=== PATIENT | male | born 1960 | race African-American/Black ===

== ENCOUNTER → 2017-12-24 | Outpatient (CLI) | payer MEDICARE | END | disposition home or self-care (01) | LOC: PMGWOUND 10:39 | DX: L89.893 Pressure ulcer of other site, stage 3 (principal) | CPT/HCPCS: 99214 ==

== ENCOUNTER → 2017-12-31 | Outpatient (CLI) | payer MEDICARE | END | disposition home or self-care (01) | LOC: PMGWOUND 11:15 | DX: L89.893 Pressure ulcer of other site, stage 3 (principal) | CPT/HCPCS: 97597; 97598 ==

== ENCOUNTER → 2018-01-07 | Outpatient (CLI) | payer MEDICARE | END | disposition home or self-care (01) | LOC: PMGWOUND 11:31 | DX: L89.893 Pressure ulcer of other site, stage 3 (principal) | CPT/HCPCS: 17250; 97597 ==

== ENCOUNTER → 2018-01-15 | Outpatient (CLI) | payer MEDICARE | END | disposition home or self-care (01) | LOC: PMGWOUND 10:30 | DX: L89.893 Pressure ulcer of other site, stage 3 (principal) | CPT/HCPCS: 97597; 97598 ==

== ENCOUNTER → 2018-01-22 | Outpatient (CLI) | payer MEDICARE | END | disposition home or self-care (01) | LOC: PMGWOUND 11:49 | DX: L89.893 Pressure ulcer of other site, stage 3 (principal) | CPT/HCPCS: 97597 ==

== ENCOUNTER → 2018-01-29 | Outpatient (CLI) | payer MEDICARE | END | disposition home or self-care (01) | LOC: PMGWOUND 11:57 | DX: L89.893 Pressure ulcer of other site, stage 3 (principal) | CPT/HCPCS: 17250; 97597 ==

== ENCOUNTER → 2018-02-05 | Outpatient (CLI) | payer MEDICARE | END | disposition home or self-care (01) | LOC: PMGWOUND 11:14 | DX: L89.893 Pressure ulcer of other site, stage 3 (principal) | CPT/HCPCS: 97597 ==

== ENCOUNTER → 2018-02-19 | Outpatient (CLI) | payer MEDICARE | END | disposition home or self-care (01) | LOC: PMGWOUND 12:22 | DX: L89.893 Pressure ulcer of other site, stage 3 (principal) | CPT/HCPCS: 97597 ==

== ENCOUNTER → 2018-02-26 | Outpatient (CLI) | payer MEDICARE | END | disposition home or self-care (01) | LOC: PMGWOUND 11:55 | DX: L89.893 Pressure ulcer of other site, stage 3 (principal); G82.50 Quadriplegia, unspecified | CPT/HCPCS: 11043; 97597; 97598 ==

== ENCOUNTER 2018-03-05 14:40 | Inpatient (IN) | payer MEDICARE ==
[2018-03-05 16:12] LABS: BASO % 0 % (0-3); EOS # 0.2 x10^3/uL (0.0-0.7); EOS % 2 % (0-3); HEMATOCRIT 35.3 % (39.0-53.0); HEMOGLOBIN 11.4 g/dL (13.0-17.5); LYMPH # 0.7 x10^3/uL (1.0-4.8); LYMPH % 8 % (24-48); MEAN CORPUSCULAR HEMOGLOBIN 23 pg (25-35); MEAN CORPUSCULAR HGB CONC 32 g/dL (31-37); MEAN CORPUSCULAR VOLUME 72 fL (79-100); MONO # 0.4 x10^3/uL (0.0-1.1); MONO % 4 % (0-9); NEUT # 8.4 x10^3uL (1.8-7.7); NEUT % 86 % (31-73); PLATELET COUNT 332 x10^3/uL (140-400); RED BLOOD COUNT 4.93 x10^6/uL (4.30-5.70); RED CELL DISTRIBUTION WIDTH 20.4 % (11.5-14.5); WHITE BLOOD COUNT 9.7 x10^3/uL (4.0-11.0)
[2018-03-05 16:16] LABS: ADD MAN DIFF? YES
[2018-03-05 16:32] LABS: ANION GAP 12 (6-14); BLOOD UREA NITROGEN 14 mg/dL (8-26); CALCIUM 8.6 mg/dL (8.5-10.1); CARBON DIOXIDE 26 mmol/L (21-32); CHLORIDE 103 mmol/L (98-107); CREATININE 0.6 mg/dL (0.7-1.3); GLUCOSE 173 mg/dL (70-99); POTASSIUM 3.4 mmol/L (3.5-5.1); SODIUM 141 mmol/L (136-145)
[2018-03-05] MEDS ORDERED: traMADol 50 MG TABLET PO (17:15)
[2018-03-05] MEDS ORDERED: ONDANSETRON PF 4 MG/2 ML VIAL. IV (17:15)
[2018-03-05] MEDS ORDERED: DOCUSATE SODIUM 100 MG CAPSULE. PO (17:15)
[2018-03-05] MEDS ORDERED: hydrALAZINE 20 MG/ML VIAL. IVP (17:15)
[2018-03-05] MEDS ORDERED: MORPHINE SULFATE 4 MG/ML DISP.SYRIN. IV (17:15)
[2018-03-05 17:46] LABS: % BANDS 3 % (0-9); % LYMPHS 5 % (24-48); % MONOS 1 % (0-10); % SEGS 91 % (35-66); ANISOCYTOSIS MOD; HYPOCHROMIA SLIGHT; MICROCYTOSIS SLIGHT; PLT ESTIMATE ADEQUATE (ADEQUATE); POIKILOCYTOSIS SLIGHT
[2018-03-05 17:47] LABS: OVALOCYTES OCC
[2018-03-05] MEDS: POTASSIUM CHLORIDE 20 MEQ TABLET.ER. PO (18:27)
[2018-03-05] MEDS: ENOXAPARIN 40 MG/0.4 ML SYRINGE. SQ (21:50)
[2018-03-06 04:26] LABS: ADD MAN DIFF? NO
[2018-03-06 04:38] LABS: BASO % 0 % (0-3); EOS # 0.4 x10^3/uL (0.0-0.7); EOS % 6 % (0-3); HEMOGLOBIN 10.4 g/dL (13.0-17.5); LYMPH # 1.1 x10^3/uL (1.0-4.8); LYMPH % 14 % (24-48); MEAN CORPUSCULAR HEMOGLOBIN 23 pg (25-35); MEAN CORPUSCULAR HGB CONC 33 g/dL (31-37); MEAN CORPUSCULAR VOLUME 70 fL (79-100); MONO # 0.6 x10^3/uL (0.0-1.1); MONO % 8 % (0-9); NEUT # 5.4 x10^3uL (1.8-7.7); NEUT % 72 % (31-73); PLATELET COUNT 317 x10^3/uL (140-400); RED BLOOD COUNT 4.58 x10^6/uL (4.30-5.70); RED CELL DISTRIBUTION WIDTH 20.5 % (11.5-14.5); WHITE BLOOD COUNT 7.5 x10^3/uL (4.0-11.0)
[2018-03-06 04:58] LABS: ANION GAP 6 (6-14); BLOOD UREA NITROGEN 17 mg/dL (8-26); CALCIUM 8.9 mg/dL (8.5-10.1); CARBON DIOXIDE 26 mmol/L (21-32); CHLORIDE 105 mmol/L (98-107); CREATININE 0.5 mg/dL (0.7-1.3); GFR 207.4; GLUCOSE 95 mg/dL (70-99); POTASSIUM 4.5 mmol/L (3.5-5.1); SODIUM 137 mmol/L (136-145)
[2018-03-06] MEDS: ACETAMINOPHEN 325 MG TABLET. PO (12:35)
[2018-03-06] MEDS: BACLOFEN 10 MG TABLET. PO ×2 (12:35→21:59)
[2018-03-06] MEDS: POLYETHYLENE GLYCOL 3350 17 GM PACKET. PO (13:18)
[2018-03-06 21:13] LABS: MRSA BY PCR Negative (Negative)
[2018-03-06] MEDS: ENOXAPARIN 40 MG/0.4 ML SYRINGE. SQ (21:59)
[2018-03-06] MEDS: BISACODYL 10 MG SUPP.RECT. PR (22:02)
[2018-03-07] MEDS: POLYETHYLENE GLYCOL 3350 17 GM PACKET. PO (08:43)
[2018-03-07] MEDS: MULTIVITAMIN with MINERAL TABLET. PO (08:43)
[2018-03-07] MEDS: BACLOFEN 10 MG TABLET. PO ×2 (08:44→22:08)
[2018-03-07] MEDS ORDERED: MULTIVITAMIN with MINERAL TABLET. PO (12:40)
[2018-03-07] MEDS: ENOXAPARIN 40 MG/0.4 ML SYRINGE. SQ (22:08)
[2018-03-08] MEDS: BACLOFEN 10 MG TABLET. PO ×2 (09:31→20:09)
[2018-03-08] MEDS: POLYETHYLENE GLYCOL 3350 17 GM PACKET. PO (09:31)
[2018-03-08] MEDS: MULTIVITAMIN with MINERAL TABLET. PO (09:32)
[2018-03-08 14:27] LABS: % SAT IRON 9 % (15-34); IRON,SERUM 21 ug/dL (65-175)
[2018-03-08] MEDS: BISACODYL 10 MG SUPP.RECT. PR (20:09)
[2018-03-08] MEDS: ENOXAPARIN 40 MG/0.4 ML SYRINGE. SQ (20:09)
[2018-03-09] MEDS: POLYETHYLENE GLYCOL 3350 17 GM PACKET. PO (08:48)
[2018-03-09] MEDS: BACLOFEN 10 MG TABLET. PO (08:49)
[2018-03-09] MEDS: MULTIVITAMIN with MINERAL TABLET. PO (08:49)
[2018-03-09 13:45] LABS: ADD MAN DIFF? NO
[2018-03-09 13:47] LABS: BASO % 0 % (0-3); EOS # 0.4 x10^3/uL (0.0-0.7); EOS % 7 % (0-3); HEMOGLOBIN 10.5 g/dL (13.0-17.5); LYMPH # 1.2 x10^3/uL (1.0-4.8); LYMPH % 19 % (24-48); MEAN CORPUSCULAR HEMOGLOBIN 23 pg (25-35); MEAN CORPUSCULAR HGB CONC 33 g/dL (31-37); MEAN CORPUSCULAR VOLUME 71 fL (79-100); MONO # 0.4 x10^3/uL (0.0-1.1); MONO % 6 % (0-9); NEUT # 4.5 x10^3uL (1.8-7.7); NEUT % 69 % (31-73); PLATELET COUNT 306 x10^3/uL (140-400); RED BLOOD COUNT 4.55 x10^6/uL (4.30-5.70); RED CELL DISTRIBUTION WIDTH 20.4 % (11.5-14.5); WHITE BLOOD COUNT 6.6 x10^3/uL (4.0-11.0)
[2018-03-09 14:05] LABS: ANION GAP 8 (6-14); BLOOD UREA NITROGEN 15 mg/dL (8-26); CALCIUM 8.2 mg/dL (8.5-10.1); CARBON DIOXIDE 29 mmol/L (21-32); CHLORIDE 102 mmol/L (98-107); CREATININE 0.6 mg/dL (0.7-1.3); GLUCOSE 135 mg/dL (70-99); POTASSIUM 4.3 mmol/L (3.5-5.1); SODIUM 139 mmol/L (136-145)
== END 2018-03-09 18:10 | DRG 592 ==
LOC: 4 NORTH 14:40
DX: L89.893 Pressure ulcer of other site, stage 3 (principal); G82.50 Quadriplegia, unspecified; D50.9 Iron deficiency anemia, unspecified; N50.89 Other specified disorders of the male genital organs; Z89.611 Acquired absence of right leg above knee; Z74.01 Bed confinement status; Z82.49 Family history of ischemic heart disease and other diseases of the circulatory system
CPT/HCPCS: 36415; 80048; 83540; 83550; 85007; 85025; 87641; J1650

== ENCOUNTER → 2018-03-05 | Outpatient (CLI) | payer MEDICARE | END | disposition home or self-care (01) | LOC: PMGWOUND 10:40 | DX: L89.893 Pressure ulcer of other site, stage 3 (principal); G82.50 Quadriplegia, unspecified | CPT/HCPCS: 97597 ==

== ENCOUNTER → 2019-01-18 | Outpatient (CLI) | payer MEDICARE ==
[2018-03-09 15:00] VITALS: BP 124/87
[~2019-01-18] MED LIST: BACL20TA PO; DOCU-109 PO; MULT-246 PO; POLY17PO29 PO; Sulfamethoxazole/Trimethoprim PO
== END | disposition home or self-care (01) ==
LOC: PMGWOUND 09:19
PROVIDERS: ATTEND Emergency Medicine Undersea and Hyperbaric Medicine
DX: L89.893 Pressure ulcer of other site, stage 3 (principal); L97.821 Non-pressure chronic ulcer of other part of left lower leg limited to breakdown of skin; Z89.611 Acquired absence of right leg above knee; T83.098D Other mechanical complication of other urinary catheter, subsequent encounter
CPT/HCPCS: 97597; 97598

== ENCOUNTER 2020-08-13 17:49 | Emergency (ER) | payer MEDICARE, OTHER ==
[~2020-08-13] VITALS: Ht 188 cm; Wt 60.0 kg
[~2020-08-13 17:49] MED LIST changes: +MULT-445 PO; +SENN1TAB71 PO
--- NOTE | 2020-08-13 19:29 | RAD ---
Exam: Left elbow 3 views INDICATION: [place] pop from left elbow during therapy TECHNIQUE: Frontal, lateral and oblique views of the left elbow Comparisons: None FINDINGS: There is an obliquely oriented fracture of the distal diaphysis of the left humerus. Deformity at the elbow joint is noted. Mild surrounding soft tissue swelling. Bone mineralization is normal. IMPRESSION: Obliquely oriented fracture of the distal diaphysis of the left humerus, moderately displaced. Electronically signed by: Yo Mata MD (08/13/2020 7:26 PM) GUZMAN
--- NOTE | 2020-08-13 21:16 | PHYS DOC ---
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 Patient denies any chance he is being abused. Review of Systems: Review of Systems: Constitutional: Denies fever or chills. [] Eyes: Denies change in visual acuity. [] HENT: Denies nasal congestion or sore throat. [] Respiratory: Denies cough or shortness of breath. [] Cardiovascular: Denies chest pain or edema. [] GI: Denies abdominal pain, nausea, vomiting, bloody stools or diarrhea. [] : Denies dysuria. [] Musculoskeletal: Reports left elbow injury Integument: Denies rash. [] Neurologic: Denies headache, focal weakness or sensory changes. [] Psychiatric: Denies depression or anxiety. [] Heart Score: Risk Factors: Risk Factors: DM, Current or recent (<one month) smoker, HTN, HLP, family h istory of CAD, obesity. Risk Scores: Score 0 - 3: 2.5% MACE over next 6 weeks - Discharge Home Score 4 - 6: 20.3% MACE over next 6 weeks - Admit for Clinical Observation Score 7 - 10: 72.7% MACE over next 6 weeks - Early Invasive Strategies Allergies: Allergies: Allergies Coded Allergies Type Severity Reaction Last Updated Verified No Known Drug Allergies 05/30/19 No Physical Exam: PE: Constitutional: Well developed, well nourished, no acute distress, non-toxic appearance. [] Jo catheter in place with cloudy urine. Skin: Very dry flaky skin Back: No tenderness, no CVA tenderness. [] Extremities: Quadriplegic patient, right [id number] amputation, left lower extremity is contracted. Right upper extremity is contracted, left upper extremity is flaccid, left fingers are contracted. +2 left radial pulse. Cap refill less than 2 seconds in left fingers. Neurologic: Alert and oriented X 3, normal motor function, normal sensory function, no focal deficits noted. [] Psychologic: flat affect Current Patient Data: Vital Signs: Vital Signs Date Time Temp Pulse Resp B/P (MAP) Pulse Ox O2 Delivery O2 Flow Rate FiO2 08/13/20 17:49 98.1 96 16 142/61 (88) 96 Room Air 98.1 EKG: EKG: [] Radiology/Procedures: Radiology/Procedures: []PROCEDURE: ELBOW LEFT 3V Exam: Left elbow 3 views INDICATION: [place] pop from left elbow during therapy TECHNIQUE: Frontal, lateral and oblique views of the left elbow Comparisons: None FINDINGS: There is an obliquely oriented fracture of the distal diaphysis of the left humerus. Deformity at the elbow joint is noted. Mild surrounding soft tissue swelling. Bone mineralization is normal. IMPRESSION: Obliquely oriented fracture of the distal diaphysis of the left humerus, moderately displaced. Electronically signed by: Yo Turner MD (08/13/2020 7:26 PM) [facility] DICTATED and SIGNED BY: YO TURNER MD DATE: 08/13/201925 Course & Med Decision Making: Course & Med Decision Making Pertinent Labs and Imaging studies reviewed. (See chart for details) This is a 60-year-old male patient presenting to the ED today with left elbow injury that occurred during therapy. Left elbow xray noted for obliquely oriented fracture of the distal diaphysis of the left humerus, moderately displaced. Spoke with Dr. Pride who stated patient can be placed in a well-padded long posterior arm splint and follow-up with his office as an outpatient. Splint was applied by the RN. Neurovascular exam is intact. Patient was discharged home with follow-up information Dragon Disclaimer: Dragleslie Disclaimer: This electronic medical record was generated, in whole or in part, using a voice recognition dictation system. Departure Departure Impression: Primary Impression: Left humeral fracture Qualified Codes: S42.332A - Displaced oblique fracture of shaft of humerus, left arm, initial encounter for closed fracture Disposition: 01 DC HOME SELF CARE/HOMELESS Condition: STABLE Referrals: Santi APARICIO MD (PCP) call his office and set up a follow up appointment ALEKS PRIDE MD Patient Instructions: Humerus Fracture, Treated with Immobilization, [id number] Additional Instructions: You have left humerus fracture. Contact the provided orthopedic doctor tomorrow morning and set up a follow-up appointment SY BROWN APRN Aug 13, 2020 21:16
[2020-08-13 22:00] VITALS: BP 122/75
== END 2020-08-13 23:45 | disposition home or self-care (01) ==
LOC: ER 17:49
DX: S42.332A Displaced oblique fracture of shaft of humerus, left arm, initial encounter for closed fracture (principal); R60.0 Localized edema; Z90.89 Acquired absence of other organs; Z98.890 Other specified postprocedural states; X58.XXXA Exposure to other specified factors, initial encounter; Y93.89 Activity, other specified; Y92.89 Other specified places as the place of occurrence of the external cause; Y99.8 Other external cause status
CPT/HCPCS: 29105; 51702; 73080; 99285

== ENCOUNTER 2020-10-22 19:08 | Emergency (ER) | payer MEDICARE ==
[~2020-10-22] VITALS: Ht 177.8 cm; Wt 59.1 kg
[2020-10-22 19:48] LABS: BASO % 0 % (0-3); EOS # 0.4 x10^3/uL (0.0-0.7); EOS % 6 % (0-3); HEMATOCRIT 42.6 % (39.0-53.0); HEMOGLOBIN 14.2 g/dL (13.0-17.5); LYMPH # 1.9 x10^3/uL (1.0-4.8); LYMPH % 27 % (24-48); MEAN CORPUSCULAR HEMOGLOBIN 27 pg (25-35); MEAN CORPUSCULAR HGB CONC 33 g/dL (31-37); MEAN CORPUSCULAR VOLUME 81 fL (79-100); MONO # 0.4 x10^3/uL (0.0-1.1); MONO % 6 % (0-9); NEUT # 4.4 x10^3/uL (1.8-7.7); NEUT % 62 % (31-73); PLATELET COUNT 248 x10^3/uL (140-400); RED BLOOD COUNT 5.24 x10^6/uL (4.30-5.70); RED CELL DISTRIBUTION WIDTH 17.5 % (11.5-14.5); WHITE BLOOD COUNT 7.1 x10^3/uL (4.0-11.0)
[2020-10-22 19:52] LABS: CLARITY,URINE CLOUDY; COLOR,URINE RED
[2020-10-22 19:55] LABS: CALCIUM 9.2 mg/dL (8.5-10.1); CREATININE 0.5 mg/dL (0.7-1.3); GFR 205.2
[2020-10-22 20:02] LABS: ALBUMIN 3.4 g/dL (3.4-5.0); ALBUMIN/GLOBULIN RATIO 0.6 (1.0-1.7); TOTAL BILIRUBIN 0.3 mg/dL (0.2-1.0); TOTAL PROTEIN 8.7 g/dL (6.4-8.2)
[2020-10-22 20:02] LABS: BACTERIA,URINE MODERATE /HPF (0-FEW); RBC,URINE FIELD OBSCURED /HPF (0-2)
[2020-10-22 20:07] LABS: AMORPHOUS SEDIMENT,UR PRESENT /HPF
[2020-10-22 20:29] LABS: ANISOCYTOSIS SLIGHT
[2020-10-22 20:30] LABS: PLT ESTIMATE ADEQUATE (ADEQUATE)
[2020-10-22 22:05] LABS: BILIRUBIN,URINE NEGATIVE (NEG); CLARITY,URINE CLEAR; COLOR,URINE OTHER; NITRITE,URINE NEGATIVE (NEG); PROTEIN,URINE 100 mg/dL (NEG-TRACE); UROBILINOGEN,URINE 0.2 mg/dL (0.2 mg/dL)
[2020-10-22 22:11] LABS: BACTERIA,URINE FEW /HPF (0-FEW); RBC,URINE TNTC /HPF (0-2)
[2020-10-22] MEDS ORDERED: LEVO750T5 PO (23:45)
--- NOTE | 2020-10-22 23:45 | PHYS DOC ---
Past Medical History Past Medical History: Other Additional Past Medical Histor: quadrapalegic; bowel obstruction Past Surgical History: Colectomy, Other Additional Past Surgical Histo: right leg amputation; bowel obstruction Smoking Status: Never Smoker Alcohol Use: None General Adult EDM: Chief Complaint: BLOOD IN URINE HPI: HPI: Patient is a 60 year old male presents to emergency department today by EMS stating that they think he needs to have his Jo changed. Patient states he has had his Jo changed about 3 months ago. Patient is a quadriplegic male who requires full care at home. Patient is cared for at home by his family members. Patient states he is not in any aches or pains. Patient states that he feels okay. Patient reports that he needs to be on antibiotics every now and then for urinary tract infections. Patient has a chronic indwelling Jo there is he has had for years. Patient denies any recent fever or chills, patient denies any nausea vomiting or diarrhea. Patient does complain of pain to his right lower extremity however patient had his right lower extremity removed at the hip years ago. Patient reports this as a ghost pain. Patient denies any other physical ailments or physical symptoms. Patient states that he thinks if he has his Jo changed and started on antibiotics he should be fine. Review of Systems: Review of Systems: 14 body systems of review of systems have been reviewed. See HPI for pertinent positives and negative responses, otherwise all other systems are negative, nonpertinent or noncontributory. Heart Score: Risk Factors: Risk Factors: DM, Current or recent (<one month) smoker, HTN, HLP, family history of CAD, obesity. Risk Scores: Score 0 - 3: 2.5% MACE over next 6 weeks - Discharge Home Score 4 - 6: 20.3% MACE over next 6 weeks - Admit for Clinical Observation Score 7 - 10: 72.7% MACE over next 6 weeks - Early Invasive Strategies Current Medications: Current Medications Medications (Trade) Dose Ordered Sig/Enrique Start Time Stop Time Status Last Admin Dose Admin Levofloxacin (Levaquin) 750 mg 1X ONCE 10/22/20 23:30 10/22/20 23:31 10/22/20 23:20 750 MG Allergies: Allergies: Allergies Coded Allergies Type Severity Reaction Last Updated Verified No Known Drug Allergies 05/30/19 No Physical Exam: PE: Constitutional: Well developed, well nourished, no acute distress, non-toxic appearance. HENT: Normocephalic, atraumatic, bilateral external ears normal, oropharynx moist, no oral exudates, nose normal. Eyes: PERRLA, EOMI, conjunctiva normal, no discharge. Neck: Normal range of motion, no tenderness, supple, no stridor. Cardiovascular:Heart rate regular rhythm, no murmur to auscultation. Lungs & Thorax: Bilateral breath sounds clear to auscultation all lung hernandez. Abdomen: Bowel sounds normal, soft, rounded, no tenderness, no masses, no pulsatile masses. Skin: Warm, dry, no erythema, no rash. No pressure ulcers appreciated. Back: No tenderness, no CVA tenderness. Extremities: No tenderness, no cyanosis, no clubbing, ROM intact, no edema. Patient bilateral upper extremity contractures. Left lower extremity contractures. Right lower extremity removed at the hip. Neurologic: Alert and oriented X 3, normal motor function, normal sensory function, no focal deficits noted. Psychologic: Affect normal, judgement normal, mood normal. : Patient has indwelling Jo. Jo appears to have been in for an extended period of time, there is blue discoloration to Jo bag and approximately three quarters up Jo bag tube. Unable to appreciate color of urine in Jo bag related to bluish discoloration of plastics. Current Patient Data: Labs: Laboratory Tests Test 10/22/20 19:35 10/22/20 19:38 10/22/20 21:46 Urine Collection Type Unknown U cath Urine Color Red Other Urine Clarity Cloudy Clear Urine pH (<5.0-8.0) 7.0 (<5.0-8.0) Urine Specific [place] (1.000-1.030) <=1.005 (1.000-1.030) Urine Protein mg/dL (NEG-TRACE) 100 mg/dL (NEG-TRACE) Urine Glucose (UA) mg/dL (NEG) Negative mg/dL (NEG) Urine Ketones (Stick) mg/dL (NEG) Trace mg/dL (NEG) Urine Blood (NEG) Large (NEG) Urine Nitrite (NEG) Negative (NEG) Urine Bilirubin (NEG) Negative (NEG) Urine Urobilinogen Dipstick mg/dL (0.2 mg/dL) 0.2 mg/dL (0.2 mg/dL) Urine Leukocyte Esterase (NEG) Moderate (NEG) Urine RBC Field obscured /HPF (0-2) Tntc /HPF (0-2) Urine WBC 11-20 /HPF (0-4) 5-10 /HPF (0-4) Urine Squamous Epithelial Cells Many /LPF Few /LPF Urine Amorphous Sediment Present /HPF Urine Bacteria Moderate /HPF (0-FEW) Few /HPF (0-FEW) White Blood Count 7.1 x10^3/uL (4.0-11.0) Red Blood Count 5.24 x10^6/uL (4.30-5.70) Hemoglobin 14.2 g/dL (13.0-17.5) Hematocrit 42.6 % (39.0-53.0) Mean Corpuscular Volume 81 fL (79-100) Mean Corpuscular Hemoglobin 27 pg (25-35) Mean Corpuscular Hemoglobin Concent 33 g/dL (31-37) Red Cell Distribution Width 17.5 % (11.5-14.5) H Platelet Count 248 x10^3/uL (140-400) Neutrophils (%) (Auto) 62 % (31-73) Lymphocytes (%) (Auto) 27 % (24-48) Monocytes (%) (Auto) 6 % (0-9) Eosinophils (%) (Auto) 6 % (0-3) H Basophils (%) (Auto) 0 % (0-3) Neutrophils # (Auto) 4.4 x10^3/uL (1.8-7.7) Lymphocytes # (Auto) 1.9 x10^3/uL (1.0-4.8) Monocytes # (Auto) 0.4 x10^3/uL (0.0-1.1) Eosinophils # (Auto) 0.4 x10^3/uL (0.0-0.7) Basophils # (Auto) 0.0 x10^3/uL (0.0-0.2) Platelet Estimate Adequate (ADEQUATE) Anisocytosis Slight Target Cells Acanthocytes (Spur Cells) Sodium Level 138 mmol/L (136-145) Potassium Level 4.0 mmol/L (3.5-5.1) Chloride Level 103 mmol/L (98-107) Carbon Dioxide Level 20 mmol/L (21-32) L Anion Gap 15 (6-14) H Blood Urea Nitrogen 10 mg/dL (8-26) Creatinine 0.5 mg/dL (0.7-1.3) L Estimated GFR (Cockcroft-Gault) 205.2 BUN/Creatinine Ratio 20 (6-20) Glucose Level 89 mg/dL (70-99) Calcium Level 9.2 mg/dL (8.5-10.1) Total Bilirubin 0.3 mg/dL (0.2-1.0) Aspartate Amino Transferase (AST) 21 U/L (15-37) Alanine Aminotransferase (ALT) 12 U/L (16-63) L Alkaline Phosphatase 134 U/L (46-116) H Total Protein 8.7 g/dL (6.4-8.2) H Albumin 3.4 g/dL (3.4-5.0) Albumin/Globulin Ratio 0.6 (1.0-1.7) L Urine Mucus Slight /LPF Laboratory Tests 10/22/20 19:38 Laboratory Tests 10/22/20 19:38 Vital Signs: Vital Signs Date Time Temp Pulse Resp B/P (MAP) Pulse Ox O2 Delivery O2 Flow Rate FiO2 10/22/20 19:10 97.8 81 16 100/77 (85) 97 Room Air 97.8 EKG: EKG: [] Radiology/Procedures: Radiology/Procedures: [] Course & Med Decision Making: Course & Med Decision Making Pertinent Labs and Imaging studies reviewed. (See chart for details) 60-year-old quadriplegic male [facility] emergency department via EMS, patient states that he needs his Jo changed and he thinks he might have a urinary tract infection. Jo appears to have been in place for extended period time. Jo was changed by ED nursing staff, UA was sent to lab for urine assay. Urine results consistent with cystitis with hematuria. Discussed with patient will start on p.o. antibiotics. Patient is amenable to this plan. Patient given first dose of 750 mg Levaquin p.o. Patient will be discharged home with prescription of 750 mg Levaquin p.o. daily for 10 days. Patient gave verbal understanding of home care instructions, return to ER concerns, patient had no further questions or concerns. Family caregivers were consulted at home and reviewed discharge home instructions, return to ER concerns. Patient discharged home without incident. Renanon Disclaimer: Dragon Disclaimer: This electronic medical record was generated, in whole or in part, using a voice recognition dictation system. Departure Departure Impression: Primary Impression: Cystitis Additional Impression: Complication of Jo catheter Qualified Codes: T83.9XXA - Unspecified complication of genitourinary prosthetic device, implant and graft, initial encounter Disposition: 01 DC HOME SELF CARE/HOMELESS Condition: STABLE Referrals: Santi APARICIO MD (PCP) Patient Instructions: Interstitial Cystitis Additional Instructions: Please take medications as prescribed, if blood in urine is not improving over the next 10 days, please call your primary care physician for consideration of extension of antibiotics and/or reexamination in the office. Please return the emergency department for worsening symptoms or other concerns. EMERGENCY DEPARTMENT GENERAL DISCHARGE INSTRUCTIONS Thank you for coming to [facility] Emergency Department (ED) today and trusting us with you care. We trust that you had a positive experience in our Emergency Department. If you wish to speak to the department management, you may call the Director at [phone]. YOUR FOLLOW UP INSTRUCTIONS ARE FOLLOWS: 1. Do you have a private Doctor? If you do not have a private doctor, please ask for a resource list of physicians or clinics that may be able to assist you with follow up care. 2. The Emergency Physicain has interpreted your x-rays. The X-Ray specialist will also review them. If there is a change in the findings, you will be notified in 48 hours when at all possible. 3. A lab test or culture has been done, your results will be reviewed and you will be notified if you need a change in treatment. ADDITIONAL INSTRUCTIONS AND INFORMATION: 1. Your care today has been supervised by a physician who is specially trained in emergency care. Many problems require more than one evaluation for a complete diagnosis and treatment. We recommend that you schedule your follow up appointment as recommended to ensure complete treatment of you illness or injury. If you are unable to obtain follow up care and continue to have a problem, or if your condition worsens, we recommend that you return to the ED. 2. We are not able to safely determine your condition over the phone nor are we able to give sound medical advice over the phone. For these safety reasons, if you call for medical advice we will ask you to come to the ED for further evaluation. 3. If you have any questions regarding these discharge instructions please call the ED at [phone]. SAFETY INFORMATION: In the interest of safety, wellness, and injury prevention; we encourage you to wear your sealbelt, if you smoke; quite smoking, and we encourage family to use a protective helmet for bicycling and other sporting events that present an increased risk for head injury. IF YOUR SYMPTOMS WORSEN OR NEW SYMPTOMS DEVELOP, OR YOU HAVE CONCERNS ABOUT YOUR CONDITION; OR IF YOUR CONDITION WORSENS WHILE YOU ARE WAITING FOR YOUR FOLLOW UP APPOINTMENT; EITHER CONTACT YOUR PRIMARY CARE DOCTOR, THE PHYSICIAN WHOSE NAME AND NUMBER YOU WERE GIVEN, OR RETURN TO THE ED IMMEDIATELY. Scripts Levofloxacin (LEVOFLOXACIN) 750 Mg Tablet 750 MG PO DAILY for UTI WITH HEMATURIA, #14 TAB 0 Refills Prov: MONSERRAT ETIENNE APRN 10/22/20 MONSERRAT ETIENNE APRN Oct 22, 2020 23:45
[2020-10-22 23:52] VITALS: BP 126/84
== END 2020-10-23 00:50 | disposition home or self-care (01) ==
LOC: ER 19:08
DX: T83.091A Other mechanical complication of indwelling urethral catheter, initial encounter (principal); N30.91 Cystitis, unspecified with hematuria; Z90.89 Acquired absence of other organs; Z98.890 Other specified postprocedural states
CPT/HCPCS: 36415; 51702; 80053; 81001; 85025; 87086; 99285

== ENCOUNTER 2021-04-05 11:40 | Inpatient (IN) | payer MEDICARE ==
[~2021-04-05] VITALS: Ht 177.8 cm; Wt 58.1 kg
[~2021-04-05 11:40] MED LIST changes: +LEVO750T5 PO
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
[2021-04-05 12:31] LABS: BILIRUBIN,URINE NEGATIVE (NEG); CLARITY,URINE CLOUDY; COLOR,URINE YELLOW; NITRITE,URINE NEGATIVE (NEG); PROTEIN,URINE NEGATIVE (NEG-TRACE); UROBILINOGEN,URINE 0.2 mg/dL (0.2 mg/dL)
[2021-04-05 12:40] LABS: BASO % 0 % (0-3); EOS # 0.2 x10^3/uL (0.0-0.7); EOS % 4 % (0-3); HEMATOCRIT 36.3 % (39.0-53.0); HEMOGLOBIN 12.2 g/dL (13.0-17.5); LYMPH # 1.4 x10^3/uL (1.0-4.8); LYMPH % 27 % (24-48); MEAN CORPUSCULAR HEMOGLOBIN 26 pg (25-35); MEAN CORPUSCULAR HGB CONC 34 g/dL (31-37); MEAN CORPUSCULAR VOLUME 79 fL (79-100); MONO # 0.4 x10^3/uL (0.0-1.1); MONO % 8 % (0-9); NEUT # 3.1 x10^3/uL (1.8-7.7); NEUT % 61 % (31-73); PLATELET COUNT 235 x10^3/uL (140-400); RED CELL DISTRIBUTION WIDTH 18.7 % (11.5-14.5); WHITE BLOOD COUNT 5.2 x10^3/uL (4.0-11.0)
[2021-04-05 12:43] LABS: AMORPHOUS SEDIMENT,UR PRESENT /HPF; BACTERIA,URINE MODERATE /HPF (0-FEW); WBC,URINE 20-40 /HPF (0-4)
[2021-04-05 12:59] LABS: CALCIUM 8.6 mg/dL (8.5-10.1); CREATININE 0.4 mg/dL (0.7-1.3); GFR 265.5; POTASSIUM 4.1 mmol/L (3.5-5.1)
[2021-04-05 13:04] LABS: ALBUMIN 3.1 g/dL (3.4-5.0); ALBUMIN/GLOBULIN RATIO 0.6 (1.0-1.7); TOTAL BILIRUBIN 0.4 mg/dL (0.2-1.0); TOTAL PROTEIN 7.9 g/dL (6.4-8.2)
--- NOTE | 2021-04-05 14:18 | RAD ---
EXAM: CT ABDOMEN/PELVIS WITHOUT CONTRAST. HISTORY: Nonhealing ulcer, concern for osteomyelitis. TECHNIQUE: Computed tomography of the abdomen and pelvis was performed without intravenous contrast. One or more of the following individualized dose reduction techniques were utilized for this examinat ion: 1. Automated exposure control. 2. Adjustment of the mA and/or kV according to patient size. 3. Use of iterative reconstruction technique. COMPARISON: None. FINDINGS: Lung windows through the visualized portions of the bases reveal mild atelectasis. A decubitus ulcer overlies the posterior sacrum to the left of midline. It appears shallow by CT. How ever, there is a large chronic erosion of the sacrum. Most of the S3 segment and the remainder of the inferior sacrum are absent. A small remnant of the tip of the coccyx remains. This is consistent wit h osteomyelitis but this is likely a chronic finding. Portions of the right hemipelvis and right hip are not included within the [id number] given patien t positioning. There is advanced erosion of the left femoral head and expansion of the acetabulum wit h protrusio. There is a large left hip effusion containing many loose bodies. The right hip appears t o been disarticulated. There are calcifications at the remnant of the hamstring origin. More proximal ly, there are laminectomy changes or dysraphism from L1 through the superior margin of the field-of-v iew. There is severe hydronephrosis of the right kidney. The cortex is totally atrophic. The right proxima l ureter is moderately dilated. The left kidney demonstrates no hydronephrosis. A cyst medially measu res 2.7 x 2.4 cm. The liver, pancreas, adrenal glands, spleen and gallbladder are unremarkable. There are no pathologic ally enlarged lymph nodes. The rectum is distended to 8.7 cm consistent with fecal impaction. The amount of stool more proximall y in the colon is not clearly abnormally increased, but there is diffuse moderate colonic distention. An anastomotic suture line is noted along the right colon. There is no small bowel obstruction. IMPRESSION: 1. Most of the inferior sacrum and coccyx are absent secondary to a large erosion. This is consistent with osteomyelitis, but likely a chronic finding. 2. 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 This may reflect a n europathic joint or changes of prior/chronic septic arthritis. 3. Fecal impaction. 4. Severe right hydronephrosis and advanced right renal atrophy. Electronically signed by: Shmuel Billingsley MD (04/05/2021 2:16 PM) [id number]
[2021-04-05] MEDS ORDERED: fentaNYL PF VIAL 100 MCG/2 ML VIAL IV PRN (15:15)
[2021-04-05] MEDS ORDERED: ACETAMINOPHEN 325 MG TABLET. PO PRN (15:15)
[2021-04-05] MEDS ORDERED: ONDANSETRON PF 4 MG/2 ML VIAL. IV PRN (15:15)
--- NOTE | 2021-04-05 17:01 | NUR ---
Wound Care Wound Type/Assessment: Pt screened for wound care needs in the ED room #12. Pt is paralysed below the neck, and is known to the wound clinic for chronic pressure related wounds. Condom catheter in place, urine light yellow, cloudy, with sediment. Pt incontinent of watery, dark stool; brief and absorbent pad changed. Stage II pressure wound to base of penis, inferior to condom catheter with bright red wound bed and smooth epithelialized margins. Unstageable coccyx ulcer wound bed is deep red, moist with hypergranulation and macerated edges; 1.8cm of undermining from 7-12:00. DTI to left lateral knee is soft and purple. Stage III to L knee is pink and slough covered with significant scar tissue to margins. L lateral ankle is a ST III PU with pink granulation and soft yellow slough in wound bed. No other open wounds noted on head to toe assessment, although there is scarring evidence of multiple resolved pressure ulcers to LLE, foot, coccyx, and back. Treatment Recommendations/Plan: Remove dressings from all wounds, cleanse and pat dry. Apply skin prep to gamaliel wounds. Coccyx: Pack with strip of aquacel AG and cover with foam. Change every other day L lateral knee, anterior knee, L lateral ankle: Cover with contact layer and foam dressing. Change every other day Base of penis: Apply skin prep BID and leave DIRECTOR COST Education provided: Pt informed of dressings and his wound care information to be taken to the floor. Pt is completely dependent on others for mobility Offloading surface/device: ordered heel medix boot for L foot and P500 bed. Pillows and purple wedge for positioning and comfort. Pt has WC cushion from home if needed Recommended Referrals/Tests: NA Discharge Recommendations for dressings: As above
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
[2021-04-05] MEDS ORDERED: IV NORMAL SALINE 1000ML BAG 1,000 ML IV ONE (18:30)
[2021-04-05 19:00] VITALS: BP 111/66
[2021-04-05] MEDS: POLYETHYLENE GLYCOL 3350 17 GM PACKET. PO PRN (20:16)
[2021-04-05] MEDS: BACLOFEN 10 MG TABLET. PO SCH (20:16)
[2021-04-05 23:00] VITALS: BP 110/72
[2021-04-06] VITALS (7 sets, daily range): BP systolic 62–114; BP diastolic 36–93
[2021-04-06 04:43] LABS: BASO % 0 % (0-3); EOS # 0.3 x10^3/uL (0.0-0.7); EOS % 4 % (0-3); HEMATOCRIT 36.5 % (39.0-53.0); HEMOGLOBIN 11.7 g/dL (13.0-17.5); LYMPH # 1.3 x10^3/uL (1.0-4.8); LYMPH % 20 % (24-48); MEAN CORPUSCULAR HEMOGLOBIN 26 pg (25-35); MEAN CORPUSCULAR HGB CONC 32 g/dL (31-37); MEAN CORPUSCULAR VOLUME 80 fL (79-100); MONO # 0.7 x10^3/uL (0.0-1.1); MONO % 11 % (0-9); NEUT # 4.1 x10^3/uL (1.8-7.7); NEUT % 65 % (31-73); PLATELET COUNT 217 x10^3/uL (140-400); RED BLOOD COUNT 4.56 x10^6/uL (4.30-5.70); WHITE BLOOD COUNT 6.3 x10^3/uL (4.0-11.0)
[2021-04-06 05:21] LABS: ANION GAP 11 (6-14); BLOOD UREA NITROGEN 10 mg/dL (8-26); CALCIUM 8.5 mg/dL (8.5-10.1); CARBON DIOXIDE 24 mmol/L (21-32); CHLORIDE 104 mmol/L (98-107); CREATININE 0.3 mg/dL (0.7-1.3); GFR > 300.0; GLUCOSE 86 mg/dL (70-99); POTASSIUM 4.2 mmol/L (3.5-5.1); SODIUM 139 mmol/L (136-145)
[2021-04-06] MEDS ORDERED: IV NORMAL SALINE 1000ML BAG 1,000 ML IV ONE (07:45)
[2021-04-06] MEDS: POLYETHYLENE GLYCOL 3350 17 GM PACKET. PO PRN (08:45)
[2021-04-06] MEDS: BACLOFEN 10 MG TABLET. PO SCH ×4 (08:45→20:30)
[2021-04-06] MEDS ORDERED: VANCOMYCIN PER PHARMACY MC PRN (08:45)
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
[2021-04-06] MEDS ORDERED: VANCOMYCIN 1.25 GM in IV NORMAL SALINE 250ML 250 ML IV ONE (09:00)
--- NOTE | 2021-04-06 11:04 | PDOC ---
Infectious Disease Note Vital Sign Vital Signs Vital Signs Date Time Temp Pulse Resp B/P (MAP) Pulse Ox O2 Delivery O2 Flow Rate FiO2 04/06/21 07:53 85/65 (72) 04/06/21 03:00 98.8 82 18 97 98.8 04/05/21 19:00 Room Air Labs Lab Laboratory Tests Test 04/05/21 12:10 04/05/21 12:30 04/06/21 04:15 Urine Collection Type U cath Urine Color Yellow Urine Clarity Cloudy Urine pH 7.0 (<5.0-8.0) Urine Specific [place] <=1.005 (1.000-1.030) Urine Protein Negative mg/dL (NEG-TRACE) Urine Glucose (UA) Negative mg/dL (NEG) Urine Ketones (Stick) Negative mg/dL (NEG) Urine Blood Trace (NEG) Urine Nitrite Negative (NEG) Urine Bilirubin Negative (NEG) Urine Urobilinogen Dipstick 0.2 mg/dL (0.2 mg/dL) Urine Leukocyte Esterase Large (NEG) Urine RBC 1-2 /HPF (0-2) Urine WBC 20-40 /HPF (0-4) Urine Transitional Epithelial Cells Few /LPF Urine Amorphous Sediment Present /HPF Urine Bacteria Moderate /HPF (0-FEW) White Blood Count 5.2 x10^3/uL (4.0-11.0) 6.3 x10^3/uL (4.0-11.0) Red Blood Count 4.60 x10^6/uL (4.30-5.70) 4.56 x10^6/uL (4.30-5.70) Hemoglobin 12.2 g/dL (13.0-17.5) 11.7 g/dL (13.0-17.5) Hematocrit 36.3 % (39.0-53.0) 36.5 % (39.0-53.0) Mean Corpuscular Volume 79 fL (79-100) 80 fL (79-100) Mean Corpuscular Hemoglobin 26 pg (25-35) 26 pg (25-35) Mean Corpuscular Hemoglobin Concent 34 g/dL (31-37) 32 g/dL (31-37) Red Cell Distribution Width 18.7 % (11.5-14.5) 19.0 % (11.5-14.5) Platelet Count 235 x10^3/uL (140-400) 217 x10^3/uL (140-400) Neutrophils (%) (Auto) 61 % (31-73) 65 % (31-73) Lymphocytes (%) (Auto) 27 % (24-48) 20 % (24-48) Monocytes (%) (Auto) 8 % (0-9) 11 % (0-9) Eosinophils (%) (Auto) 4 % (0-3) 4 % (0-3) Basophils (%) (Auto) 0 % (0-3) 0 % (0-3) Neutrophils # (Auto) 3.1 x10^3/uL (1.8-7.7) 4.1 x10^3/uL (1.8-7.7) Lymphocytes # (Auto) 1.4 x10^3/uL (1.0-4.8) 1.3 x10^3/uL (1.0-4.8) Monocytes # (Auto) 0.4 x10^3/uL (0.0-1.1) 0.7 x10^3/uL (0.0-1.1) Eosinophils # (Auto) 0.2 x10^3/uL (0.0-0.7) 0.3 x10^3/uL (0.0-0.7) Basophils # (Auto) 0.0 x10^3/uL (0.0-0.2) 0.0 x10^3/uL (0.0-0.2) Erythrocyte Sedimentation Rate 45 (0-15) Sodium Level 137 mmol/L (136-145) 139 mmol/L (136-145) Potassium Level 4.1 mmol/L (3.5-5.1) 4.2 mmol/L (3.5-5.1) Chloride Level 102 mmol/L (98-107) 104 mmol/L (98-107) Carbon Dioxide Level 26 mmol/L (21-32) 24 mmol/L (21-32) Anion Gap 9 (6-14) 11 (6-14) Blood Urea Nitrogen 8 mg/dL (8-26) 10 mg/dL (8-26) Creatinine 0.4 mg/dL (0.7-1.3) 0.3 mg/dL (0.7-1.3) Estimated GFR (Cockcroft-Gault) 265.5 > 300.0 BUN/Creatinine Ratio 20 (6-20) Glucose Level 90 mg/dL (70-99) 86 mg/dL (70-99) Lactic Acid Level 0.8 mmol/L (0.4-2.0) Calcium Level 8.6 mg/dL (8.5-10.1) 8.5 mg/dL (8.5-10.1) Total Bilirubin 0.4 mg/dL (0.2-1.0) Aspartate Amino Transf (AST/SGOT) 12 U/L (15-37) Alanine Aminotransferase (ALT/SGPT) 13 U/L (16-63) Alkaline Phosphatase 133 U/L (46-116) C-Reactive Protein, Quantitative 15.8 mg/L (0-3.3) Total Protein 7.9 g/dL (6.4-8.2) Albumin 3.1 g/dL (3.4-5.0) Albumin/Globulin Ratio 0.6 (1.0-1.7) CT 1. Most of the inferior sacrum and coccyx are absent secondary to a large erosion. This is consistent with osteomyelitis, but likely a chronic finding. 2. 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 This may reflect a neuropathic joint or changes of prior/chronic septic arthritis. 3. Fecal impaction. 4. Severe right hydronephrosis and advanced right renal atrophy. Micro Microbiology 04/05/21 Blood Culture - Final, Complete Objective Assessment Chronic sacracoccygeal pressure wound with osteomyelitis on CT. GPC bacteremia (1 of 4 bottles), 04/05. Pyuria Fecal impaction Quadriplegia with neurogenic bowel/bladder. Severe right hydronephrosis and advanced right renal atrophy. 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 Has sacral wound but does not track to bone that I can probe. Destructive changes on CT maybe chronic but needs urology eval and likely surgery and flap to heal this Would transfer to or other tertiary center for eval Cont abx D/w nursing Attending Co-Sign Attending Co-Sign The patient was seen and interviewed as well as examined at the bedside. The chart was reviewed. The case was discussed. Agree with the plan of care. RAJENDRA KILLIAN APRN Apr 06, 2021 11:04 ENRICO DUMONT MD Apr 06, 2021 15:14
[2021-04-06] MEDS ORDERED: SODIUM PHOSPHATES 19/7GM 133 ML ENEMA. PR PRN (11:15)
[2021-04-06] MEDS: BISACODYL 10 MG SUPP.RECT. PR PRN (11:30)
[2021-04-06] MEDS: PIPERACILLIN/TAZOBACTAM 3.375 GM in IV NORMAL SALINE 50ML 50 ML IV SCH ×2 (11:30→18:24)
[2021-04-06] MEDS: IV NORMAL SALINE 1000ML BAG 1,000 ML IV SCH (11:36)
[2021-04-06] MEDS ORDERED: DAPTOmycin (GENERIC) IVPB 320 MG in IV NORMAL SALINE 50ML 50 ML IV ONE (12:00)
--- NOTE | 2021-04-06 18:10 | CONS ---
DATE OF CONSULTATION: 04/06/2021 REFERRING PHYSICIAN: Rivera Toro MD REASON FOR CONSULTATION: Questionable sacral osteomyelitis. HISTORY OF PRESENT ILLNESS: This patient is a 60-year-old male who is quadriplegic and lives at home in the care of his sister. He presented to the Emergency Department for concern of a sacrococcygeal wound after his air mattress deflated. He believes the wound has been present for several months. At one point, he was followed by home health. He denies pain, drainage, odor, fever or chills. CT abdomen and pelvis without contrast revealed most of the inferior sacrum and coccyx are absent secondary to a large erosion. This is consistent with osteomyelitis, but likely a chronic finding. Sed rate 45. Normal WBC count. Blood cultures are positive for gram-positive cocci in 1/4 bottles. A dose of vancomycin has been ordered per primary. 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 Abdominal surgery for bowel obstruction. Left cataract extraction. SOCIAL HISTORY: The patient lives at home in the care of his sister. He has a history of smoking. FAMILY HISTORY: COPD, dementia, hypertension. ALLERGIES: No known drug allergies. MEDICATIONS: Vancomycin, baclofen, fentanyl, ondansetron, MiraLax, Senokot, Fleet Enema, Dulcolax suppository, Tylenol. REVIEW OF SYSTEMS: The patient says his last bowel movement was about a week ago. He denies nausea, vomiting. He is not very hungry. Denies cough, shortness of air or chest discomfort. He has some gross movement of right upper extremity. He needs assistance with all his care. PHYSICAL EXAMINATION: VITAL SIGNS: Temperature is 98.8, blood pressure is 85/65, heart rate is 82, respiratory rate is 18, pulse oximetry is 97% on room air. GENERAL: The patient is in bed, alert, watching TV. HEENT: Normal conjunctivae. Oral oropharynx pink and moist. No lesions seen. NECK: Supple. LUNGS: Clear to auscultation. No accessory muscle use. HEART: Normal S1, S2 regular. ABDOMEN: Distended, soft, nontender with bowel sounds present. GENITOURINARY: Indwelling Jo catheter in place since 04/05. EXTREMITIES: Disarticulation right hip. 3+ edema in left lower extremity. He has a left heel wound with a dressing in place, not to be taken down until the . No cyanosis. SKIN: Warm to touch. No signs of rash. He has an approximate 3 cm sacrococcygeal wound. No bone probed, contaminated with stool. NEUROLOGIC: Alert, answering questions appropriately, somewhat of a poor historian, quadriplegia with some gross movement of right upper extremity, left leg contracted. Right EJ looks okay. LABORATORY DATA: WBC 6.3; hemoglobin 11.7; platelets 217,000. Sed rate 45. Electrolytes unremarkable. Creatinine 0.3, BUN 10, glucose 86. Lactic acid 0.8. Total bilirubin 0.4, AST 12, ALT 13. CRP 15.8. Albumin 3.1. Urinalysis positive for wbcs, leukocyte esterase and bacteria. Blood cultures show gram-positive cocci in clusters seen in 1/[address] abdomen and pelvis shows most of the inferior sacrum and coccyx are absent secondary to a large erosion. This is consistent with osteomyelitis, but likely a chronic finding; advanced destruction of the left femoral head with left acetabular protrusion. This may reflect neuropathic joint or changes of prior/chronic septic arthritis; fecal impaction; severe right hydronephrosis and advanced right renal atrophy. IMPRESSION: 1. Chronic sacrococcygeal pressure wound with destructive changes on CT imaging, may be chronic. 2. Gram-positive cocci bacteremia, 1/4 bottles on 04/05. 3. Pyuria. 4. Fecal impaction. 5. Quadriplegia with neurogenic bowel and bladder. 6. Severe right hydronephrosis and advanced right renal atrophy. 7. 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 PLAN: 1. Recommend switching vancomycin to daptomycin and adding Zosyn. 2. Follow up cultures. 3. Monitor laboratory values and temperature. 4. Local wound care and offloading. 5. The patient was seen by General Surgery. He will likely need a flap. 6. With severe hydronephrosis, would transfer to or other tertiary center for evaluation. 7. Bowel regimen per primary. Thank you, Dr. Toro for asking us to participate in this patient's care. Should you have further questions or concerns, please call. The patient was seen and examined and plan of care implemented by Dr. Geremias Blum. JAYLIN/CECY/SOPepper DR: JAYLIN/azam TID: [id number] MTDD
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
[2021-04-06] MEDS: POLYETHYLENE GLYCOL 3350 17 GM PACKET. PO SCH (20:30)
[2021-04-07] VITALS (7 sets, daily range): BP systolic 74–107; BP diastolic 35–73
[2021-04-07] MEDS: PIPERACILLIN/TAZOBACTAM 3.375 GM in IV NORMAL SALINE 50ML 50 ML IV SCH ×5 (00:01→23:55)
[2021-04-07] MEDS: IV NORMAL SALINE 1000ML BAG 1,000 ML IV SCH ×2 (00:02→16:25)
[2021-04-07] MEDS ORDERED: IV NORMAL SALINE 500ML BAG 500 ML IV ONE (00:15)
--- NOTE | 2021-04-07 06:33 | PDOC ---
Infectious Disease Note Subjective Subjective Feels better. No F/C/S/N/V/D/SOA + BMs ROS ROS o/w neg Vital Sign Vital Signs Vital Signs Date Time Temp Pulse Resp B/P (MAP) Pulse Ox O2 Delivery O2 Flow Rate FiO2 04/07/21 03:00 97.6 75 20 96/73 (81) 96 Room Air 97.6 Physical Exam PHYSICAL EXAM GENERAL: The patient is in bed, alert, watching TV. HEENT: Normal conjunctivae. Oral oropharynx pink and moist. No lesions seen. NECK: Supple. LUNGS: Clear to auscultation. No accessory muscle use. HEART: Normal S1, S2 regular. ABDOMEN: Distended, soft, nontender with bowel sounds present. GENITOURINARY: Indwelling Jo catheter in place since 04/05. EXTREMITIES: Disarticulation right hip. 3+ edema in left lower extremity. He has a left heel wound with a dressing in place, not to be taken down until the . No cyanosis. SKIN: Warm to touch. No signs of rash. He has an approximate 3 cm sacrococcygeal wound. No bone probed, contaminated with stool.- examined 04/06 NEUROLOGIC: Alert, answering questions appropriately, somewhat of a poor historian, quadriplegia with some gross movement of right upper extremity, left leg contracted. Right EJ looks okay. Labs Micro Microbiology 04/05/21 Blood Culture - Preliminary, Resulted NO GROWTH AFTER 1 DAY 04/05/21 Urine Culture - Final, Complete Objective Assessment 1. Chronic sacrococcygeal pressure wound with destructive changes on CT imaging, may be chronic. 2. Gram-positive cocci bacteremia, 1/4 bottles on 04/05. 3. Pyuria - 3 or more organisms seen - contamination. 4. Fecal impaction BM 04/06. 5. Quadriplegia with neurogenic bowel and bladder. 6. Severe right hydronephrosis and advanced right renal atrophy. 7. 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 Plan Plan of Care changed vanc to dapto and add Zosyn 04/06 f/u cultures Monitor labs/temp Local wound care and off loading No surgical intervention planned Bowel regimen per primary CT with severe hydro. Has sacral wound but does not track to bone that I can probe. Destructive changes on CT maybe chronic but needs urology eval and likely surgery and flap to heal this Would transfer to or other tertiary center for eval D/w nursing ENRICO DUMONT MD Apr 07, 2021 06:33
[2021-04-07] MEDS: POLYETHYLENE GLYCOL 3350 17 GM PACKET. PO SCH ×2 (09:00→20:57)
[2021-04-07] MEDS: SENNOSIDES/DOCUSATE 8.6/50MG TABLET. PO SCH (09:25)
[2021-04-07] MEDS: BACLOFEN 10 MG TABLET. PO SCH ×4 (09:26→20:53)
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
[2021-04-07] MEDS: DAPTOmycin (GENERIC) IVPB 320 MG in IV NORMAL SALINE 50ML 50 ML IV SCH (16:25)
[2021-04-07] MEDS: LACTOBACILLUS RHAMNOSUS GG 1 CAPSULE. PO SCH (20:51)
[2021-04-08 03:00] VITALS: BP 100/77
[2021-04-08] MEDS: IV NORMAL SALINE 1000ML BAG 1,000 ML IV SCH ×2 (03:30→21:09)
[2021-04-08] MEDS: PIPERACILLIN/TAZOBACTAM 3.375 GM in IV NORMAL SALINE 50ML 50 ML IV SCH ×4 (06:15→23:37)
[2021-04-08 07:00] VITALS: BP 139/87
[2021-04-08 08:25] LABS: CALCIUM 7.7 mg/dL (8.5-10.1); CREATININE 0.4 mg/dL (0.7-1.3); GFR 265.5; POTASSIUM 3.8 mmol/L (3.5-5.1)
[2021-04-08] MEDS: BACLOFEN 10 MG TABLET. PO SCH ×4 (08:54→21:10)
[2021-04-08] MEDS: LACTOBACILLUS RHAMNOSUS GG 1 CAPSULE. PO SCH ×2 (08:54→21:10)
[2021-04-08] MEDS: POLYETHYLENE GLYCOL 3350 17 GM PACKET. PO SCH ×2 (08:54→21:10)
--- NOTE | 2021-04-08 09:40 | PDOC ---
Infectious Disease Note Subjective: Subjective Feels better. No F/C/S/N/V/D/SOA + BMs Vital Signs: Vital Signs Vital Signs Date Time Temp Pulse Resp B/P (MAP) Pulse Ox O2 Delivery O2 Flow Rate FiO2 04/08/21 08:30 Room Air 04/08/21 07:00 97.5 65 20 139/87 (104) 99 97.5 Physical Exam: PHYSICAL EXAM GENERAL: The patient is in bed, alert, awake comfortable HEENT: Normal conjunctivae. Oral oropharynx pink and moist. No lesions seen. NECK: Supple. LUNGS: Clear to auscultation. No accessory muscle use. HEART: Normal S1, S2 regular. ABDOMEN: Distended, soft, nontender with bowel sounds present. GENITOURINARY: Indwelling Jo catheter in place since 04/05. EXTREMITIES: Disarticulation right hip. 3+ edema in left lower extremity. He has a left heel wound with a dressing in place, not to be taken down until the 13th. No cyanosis. SKIN: Warm to touch. No signs of rash. BACK : He has an approximately 3 cm sacrococcygeal wound. No bone probed, NEUROLOGIC: Alert, answering questions appropriately, somewhat of a poor historian, quadriplegia with some gross movement of right upper extremity, left leg contracted.Lt fingers chronic contractures present, Right EJ looks okay. Medications: Inpatient Meds: Medications reviewed. Labs: Lab Laboratory Tests Test 04/08/21 06:50 Sodium Level 146 mmol/L (136-145) Potassium Level 3.8 mmol/L (3.5-5.1) Chloride Level 114 mmol/L (98-107) Carbon Dioxide Level 23 mmol/L (21-32) Anion Gap 9 (6-14) Blood Urea Nitrogen 7 mg/dL (8-26) Creatinine 0.4 mg/dL (0.7-1.3) Estimated GFR (Cockcroft-Gault) 265.5 Glucose Level 74 mg/dL (70-99) Calcium Level 7.7 mg/dL (8.5-10.1) Creatine Kinase 29 U/L (39-308) Micro CT A/P IMPRESSION: 1. Most of the inferior sacrum and coccyx are absent secondary to a large erosion. This is consistent with osteomyelitis, but likely a chronic finding. 2. 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 This may reflect a neuropathic joint or changes of prior/chronic septic arthritis. 3. Fecal impaction. 4. Severe right hydronephrosis and advanced right renal atrophy. UC polymicrobial contaminated specimen BC 10/29 staph epidermidis likely contaminant Objective: Assessment: 1. Chronic sacrococcygeal pressure wound with destructive changes on CT imaging, may be chronic ,sacral wound but does not track to bone at this time, Destructive changes on CT maybe chronic 2. Gram-positive cocci bacteremia, 1/4 bottles on 04/05. staph epidermidis,could be a contaminant 3. Pyuria - 3 or more organisms seen - contamination. 4. Fecal impaction BM 04/06. 5. Quadriplegia with neurogenic bowel and bladder. 6. Severe right hydronephrosis and advanced right renal atrophy. 7. 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 Plan: Plan of Care Cont dapto and Zosyn 04/06 f/u cultures Monitor labs/temp Local wound care and off loading No surgical intervention planned Bowel regimen per primary Pt would need urology eval and likely surgery and flap to heal this Would transfer to or other tertiary center for evaluation D/W nursing CARRIE TREVIÑO MD Apr 08, 2021 09:40
--- NOTE | 2021-04-08 10:32 | NUR ---
SW following. Discussed with RN, pt from home with sister, room air, regular diet. Pt currently on IV abx - awaiting cultures. Some discussion about recommendation to transfer to . SW will continue to follow.
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
[2021-04-08 11:00] VITALS: BP 103/61
--- NOTE | 2021-04-08 13:23 | PDOC ---
DATE OF SERVICE DATE: 04/08/21 TIME: 13:17 SUBJECTIVE ROS states feeling better, Stable OBJECTIVE Vital Signs Vital Signs Date Time Temp Pulse Resp B/P (MAP) Pulse Ox O2 Delivery O2 Flow Rate FiO2 04/08/21 11:00 97.4 66 20 103/61 (75) 99 Room Air 97.4 I & 0 Intake and Output 04/08/21 07:00 Intake Total 1460 ml Output Total 2200 ml Balance -740 ml Intake Oral 1460 ml Output Urine Total 2200 ml # Bowel Movements 1 PHYSICAL EXAM Physical Exam GENERAL: NAD HEENT: OM moist. NECK: Supple. LUNGS: Clear to auscultation. No accessory muscle use. HEART: Normal S1, S2 regular. ABDOMEN: soft, nontender G U- Indwelling Jo catheter in place since 04/05. EXT: Disarticulation right hip. 3+ edema in left lower extremity. left heel wound with a dressing in place SKIN: No signs of rash. NEURO: quadriplegia left leg contracted.Lt fingers chronic contractures present DIAGNOSIS/ASSESSMENT Assessment & Plan Right sided Hydronephrosis - Chronic, Renal cortex not seen, Rt renal atrophy . No further eval or Intervention needed . Creat is Normal Renal cyst- Lt-benign HyperNatremia- Encourage PO fluid intake Chronic sacrococcygeal pressure wound with destructive changes on CT imaging, may be chronic Gram-positive cocci bacteremia, 1/4 bottles on 04/05. staph epidermidis,could be a contaminant Pyuria - 3 or more organisms seen - contamination. Quadriplegia with neurogenic bowel and bladder. 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 Will sign off COMMENT/RELEVANT DATA Meds Current Medications Medications (Trade) Dose Ordered Sig/Enrique Start Time Stop Time Status Last Admin Dose Admin Acetaminophen (Tylenol) 650 mg PRN Q4HRS PRN 04/05/21 15:15 04/06/21 15:14 DC Baclofen (Lioresal) 20 mg QID 04/05/21 21:00 04/08/21 12:34 20 MG Bisacodyl (Dulcolax Supp) 10 mg PRN DAILY PRN 04/06/21 11:15 04/06/21 11:30 10 MG Daptomycin 320 mg/ Sodium Chloride 50 ml @ 100 mls/hr Q24H 04/07/21 16:00 04/07/21 16:25 100 MLS/HR Fentanyl Citrate (Fentanyl 2ml Vial) 50 mcg PRN Q1HR PRN 04/05/21 15:15 04/06/21 15:14 DC Lactobacillus Rhamnosus (Culturelle) 1 cap BID 04/07/21 21:00 04/08/21 08:54 1 CAP Ondansetron HCl (Zofran) 4 mg PRN Q8HRS PRN 04/05/21 15:15 04/06/21 15:14 DC Piperacillin Sod/ Tazobactam Sod 3.375 gm/Sodium Chloride 50 ml @ 100 mls/hr Q6HRS 04/06/21 12:00 04/08/21 11:29 100 MLS/HR Polyethylene Glycol (miraLAX PACKET) 17 gm BID 04/06/21 21:00 04/06/21 20:30 17 GM Senna/Docusate Sodium (Senna Plus) 1 tab QODAY 04/07/21 09:00 04/07/21 09:25 1 TAB Sodium Monofluorophosphate (Fleet Adult) 133 ml DAILY PRN 04/06/21 11:15 Sodium Chloride 500 ml @ 500 mls/hr 1X ONCE 04/07/21 00:15 04/07/21 01:14 DC 04/07/21 00:20 500 MLS/HR Vancomycin HCl (Vanco Per Pharmacy) 1 each PRN DAILY PRN 04/06/21 08:45 Cancel Vancomycin HCl 1.25 gm/Sodium Chloride 250 ml @ 166.667 mls/hr 1X ONCE 04/06/21 09:00 04/06/21 10:29 Cancel Lab Laboratory Tests Test 04/08/21 06:50 Sodium Level 146 mmol/L (136-145) Potassium Level 3.8 mmol/L (3.5-5.1) Chloride Level 114 mmol/L (98-107) Carbon Dioxide Level 23 mmol/L (21-32) Anion Gap 9 (6-14) Blood Urea Nitrogen 7 mg/dL (8-26) Creatinine 0.4 mg/dL (0.7-1.3) Estimated GFR (Cockcroft-Gault) 265.5 Glucose Level 74 mg/dL (70-99) Calcium Level 7.7 mg/dL (8.5-10.1) Creatine Kinase 29 U/L (39-308) Results All relevant outside records, renal labs, imaging studies, telemetry/EKG's were reviewed. Justicifation of Admission Dx: Justifications for Admission: Justification of Admission Dx: N/A KEISHA ALAS MD Apr 08, 2021 13:23
[2021-04-08 15:00] VITALS: BP 115/77
[2021-04-08] MEDS: DAPTOmycin (GENERIC) IVPB 320 MG in IV NORMAL SALINE 50ML 50 ML IV SCH (16:14)
[2021-04-08] MEDS: MULTIVITAMIN with MINERAL TABLET. PO SCH (18:20)
[2021-04-08] MEDS: ASCORBIC ACID 500 MG TABLET PO SCH (18:20)
--- NOTE | 2021-04-08 18:53 | NUR ---
Pt transferred from room 670 to 410 by bed at approx 1845. All belongings sent with pt.
[2021-04-08 19:00] VITALS: BP 124/82
[2021-04-08 23:00] VITALS: BP 167/97
[2021-04-09 03:00] VITALS: BP 157/83
[2021-04-09] MEDS: IV NORMAL SALINE 1000ML BAG 1,000 ML IV SCH ×2 (06:02→20:43)
[2021-04-09] MEDS: PIPERACILLIN/TAZOBACTAM 3.375 GM in IV NORMAL SALINE 50ML 50 ML IV SCH ×4 (06:02→23:46)
[2021-04-09 07:00] VITALS: BP 169/100
[2021-04-09] MEDS: MULTIVITAMIN with MINERAL TABLET. PO SCH (08:37)
[2021-04-09] MEDS: POLYETHYLENE GLYCOL 3350 17 GM PACKET. PO SCH ×2 (08:37→21:34)
[2021-04-09] MEDS: LACTOBACILLUS RHAMNOSUS GG 1 CAPSULE. PO SCH ×2 (08:37→21:34)
[2021-04-09] MEDS: ASCORBIC ACID 500 MG TABLET PO SCH (08:37)
[2021-04-09] MEDS: SENNOSIDES/DOCUSATE 8.6/50MG TABLET. PO SCH (08:37)
[2021-04-09] MEDS: BACLOFEN 10 MG TABLET. PO SCH ×4 (08:37→21:34)
--- NOTE | 2021-04-09 09:04 | PDOC ---
Infectious Disease Note Subjective: Subjective Feels better. No F/C/S/N/V/D/SOA + BMs Vital Signs: Vital Signs Vital Signs Date Time Temp Pulse Resp B/P (MAP) Pulse Ox O2 Delivery O2 Flow Rate FiO2 04/09/21 07:00 98.3 67 18 169/100 (123) 98 Room Air 98.3 Physical Exam: PHYSICAL EXAM GENERAL: The patient is in bed, alert, awake comfortable HEENT: Normal conjunctivae. Oral oropharynx pink and moist. No lesions seen. NECK: Supple. LUNGS: Clear to auscultation. No accessory muscle use. HEART: Normal S1, S2 regular. ABDOMEN: Distended, soft, nontender with bowel sounds present. GENITOURINARY: Indwelling Jo catheter in place since 04/05. clear urine EXTREMITIES: Disarticulation right hip. 3+ edema in left lower extremity. He has a left heel wound and lt ankle wound with a dressing in place, No cyanosis. SKIN: Warm to touch. No signs of rash. BACK : He has an approximately 3 cm sacrococcygeal wound. No bone probed, NEUROLOGIC: Alert, answering questions appropriately, somewhat of a poor historian, quadriplegia with some gross movement of right upper extremity, left leg contracted.Lt fingers chronic contractures present, Medications: Inpatient Meds: Medications reviewed. Labs: Micro CT A/P IMPRESSION: 1. Most of the inferior sacrum and coccyx are absent secondary to a large erosio n. This is consistent with osteomyelitis, but likely a chronic finding. 2. 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 This may reflect a neuropathic joint or changes of prior/chronic septic arthritis. 3. Fecal impaction. 4. Severe right hydronephrosis and advanced right renal atrophy. UC polymicrobial contaminated specimen BC 10/29 staph epidermidis likely contaminant Objective: Assessment: 1. Chronic sacrococcygeal pressure wound with destructive changes on CT imaging, may be chronic ,sacral wound but does not track to bone at this time, Destructive changes on CT maybe chronic 2. Gram-positive cocci bacteremia, 1/4 bottles on 04/05. staph epidermidis,could be a contaminant 3. Pyuria - 3 or more organisms seen - contamination. 4. Fecal impaction BM 04/06. 5. Quadriplegia with neurogenic bowel and bladder. 6. Severe right hydronephrosis and advanced right renal atrophy. 7. 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 Plan: Plan of Care Cont dapto and Zosyn / f/u cultures Monitor labs/temp Local wound care and off loading No surgical intervention planned Bowel regimen per primary Pt may need urology evaluation if worsening of symptoms Will need flap in the future D/W nursing CARRIE TREVIÑO MD Apr 09, 2021 09:04
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
--- NOTE | 2021-04-09 10:31 | NUR ---
Wound Care Wound Type/Assessment: Patient seen per wound care follow for multiple pressure ulcers. See wound assessment. patient is well known to us from the wound clinic. Condom catheter in place, urine light yellow, cloudy, with sediment, the penis wound is now resolved. Unstageable coccyx ulcer wound bed is deep red, moist with hypergranulation and macerated edges, but appears to have improved since last assessment. Stage II with DTI to left lateral knee which is granulated with some DTI. Stage III to L knee is pink and slough covered with significant scar tissue to margins. L lateral ankle is a ST III PU with pink granulation and soft yellow slough in wound bed. No other open wounds noted on head to toe assessment, although there is scarring evidence of multiple resolved pressure ulcers to LLE, foot, coccyx, and back. Wounds cleansed and assessed. Treatment Recommendations/Plan: Remove dressings from all wounds, cleanse and pat dry. Apply skin prep to gamaliel wounds. Coccyx: Pack with strip of aquacel AG and cover with foam. Change every other day L lateral knee, anterior knee, L lateral ankle: Cover with contact layer and foam dressing. Change on 04/12/21 and then on 04/14/21. Wound care will follow up on 04/16/21. Education provided: Patient educated on dressing changes and PU treatment and management. Offloading surface/device: ordered heel medix boot for L foot and pt is one a P-500 bed at this time. Pillows and purple wedge for positioning and comfort. Pt has WC cushion from home if needed Recommended Referrals/Tests: NA Discharge Recommendations for dressings: Dressing change instructions left in room. Wound care will follow up on 04/16/21. Patient may follow in the wound clinic after discharge if patient wishes. Bed lowered and call light in reach. Patient on back at this time per is his request.
[2021-04-09 11:00] VITALS: BP 159/47
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
--- NOTE | 2021-04-09 14:47 | RAD ---
XR CHEST 1V History: Reason: sepsis / Spl. Instructions: / History: Comparison: July 06, 2015 Findings: Patchy right midlung opacity. No pleural effusion. No pneumothorax. Left midlung calcified nodule, li luke prior granulous disease. Unchanged heart size. Nodular densities projecting over the mid lungs, may represent nipple. Impression: 1. Patchy right midlung opacity, may represent atelectasis or consolidation. Recommend follow-up. 2. Nodular opacities projecting over the mid lungs, may represent nipple shadows. Recommend attentio n on follow-up. Electronically signed by: Frantz Estrada DO (04/09/2021 2:45 PM) [id number]
--- NOTE | 2021-04-09 14:50 | RAD ---
XR FOOT_LEFT 3 VIEWS History: Reason: Osteomyelitis/ Spl. Instructions: / History: Technique: 3 views right foot Comparison: May 02, 2019 Findings: Osteopenia. No dislocation. No fracture. Diffuse foot soft tissue swelling most prominent dorsal aspe ct. Mild midfoot and ankle DJD. No radiographic evidence of osteomyelitis. Impression: 1. No radiographic evidence of osteomyelitis. MRI can further evaluate as clinically warranted. 2. Foot soft tissue swelling. 3. Diffuse osteopenia. Electronically signed by: Frantz Estrada DO (04/09/2021 2:47 PM) [id number]
[2021-04-09 15:00] VITALS: BP 119/79
[2021-04-09 15:08] LABS: ALBUMIN 2.2 g/dL (3.4-5.0); ALBUMIN/GLOBULIN RATIO 0.6 (1.0-1.7); CALCIUM 7.7 mg/dL (8.5-10.1); CREATININE 0.4 mg/dL (0.7-1.3); GFR 265.5; POTASSIUM 4.1 mmol/L (3.5-5.1); TOTAL BILIRUBIN 0.2 mg/dL (0.2-1.0); TOTAL PROTEIN 6.1 g/dL (6.4-8.2)
[2021-04-09 15:15] LABS: BASO % 0 % (0-3); EOS # 0.4 x10^3/uL (0.0-0.7); EOS % 6 % (0-3); HEMATOCRIT 31.9 % (39.0-53.0); HEMOGLOBIN 10.3 g/dL (13.0-17.5); LYMPH # 0.8 x10^3/uL (1.0-4.8); LYMPH % 13 % (24-48); MEAN CORPUSCULAR HEMOGLOBIN 26 pg (25-35); MEAN CORPUSCULAR HGB CONC 32 g/dL (31-37); MEAN CORPUSCULAR VOLUME 80 fL (79-100); MONO # 0.4 x10^3/uL (0.0-1.1); MONO % 7 % (0-9); NEUT # 4.8 x10^3/uL (1.8-7.7); NEUT % 74 % (31-73); PLATELET COUNT 188 x10^3/uL (140-400); RED BLOOD COUNT 3.97 x10^6/uL (4.30-5.70); WHITE BLOOD COUNT 6.5 x10^3/uL (4.0-11.0)
--- NOTE | 2021-04-09 15:16 | NUR ---
SS following up with discharge planning. SS reviewed pt chart and discussed with pt RN. Pt is currently on room air. Pt on IV Daptmycin and IV Zosyn. Wound care following. No PT/OT needs. Discharge plan is currently to home when medically ready. SS will continue to follow for discharge planning.
[2021-04-09] MEDS: DAPTOmycin (GENERIC) IVPB 320 MG in IV NORMAL SALINE 50ML 50 ML IV SCH (16:32)
--- NOTE | 2021-04-09 18:18 | CARD ---
MR#: [id number] Date of Study: 04/09/2021 Ordering Physician: ALEC GARCIA, Referring Physician: ALEC GARCIA Tech: Jaida Lucio [facility] APPROVED REPORT EXAM: Two-dimensional and M-mode echocardiogram with Doppler and color Doppler. Other Information Quality : Technically LimitedHR: 72bpm Rhythm : NSR INDICATION RISK FACTORS Hypertension 2D DIMENSIONS Left Atrium(2D)2.7 (1.6-4.0cm)IVSd0.8 (0.7-1.1cm) Aortic Root(2D)3.6 (2.0-3.7cm)LVDd4.1 (3.9-5.9cm) LVOT Diameter2.6 (1.8-2.4cm)PWd1.0 (0.7-1.1cm) LVDs2.3 (2.5-4.0cm)FS (%) 45.2 % SV58.5 ml Aortic Valve AoV Peak Bharat.103.8cm/Mary Peak GR.4.3mmHg LEFT VENTRICLE The left ventricle is normal size. There is normal left ventricular wall thickness. The left ventricu lar systolic function is normal and the ejection fraction is within normal range. Estimated ejection fraction 55-60%. There is normal LV segmental wall motion. The left ventricular diastolic function an d filling is normal for age. RIGHT VENTRICLE The right ventricle is normal size. There is normal right ventricular wall thickness. The right ventr icular systolic function is normal. ATRIA The left atrium size is normal. The right atrium size is normal. The interatrial septum is intact wit h no evidence for an atrial septal defect or patent foramen ovale as noted on 2-D or Doppler imaging. Technically difficult but normal bubble study. AORTIC VALVE The aortic valve is normal in structure and function. Doppler and Color Flow revealed no significant aortic regurgitation. There is no significant aortic valvular stenosis. MITRAL VALVE The mitral valve is normal in structure and function. There is no evidence of mitral valve prolapse. There is no mitral valve stenosis. Doppler and Color Flow revealed trace mitral valve regurgitation. TRICUSPID VALVE The tricuspid valve is normal in structure and function. Doppler and Color Flow revealed no tricuspid valve regurgitation noted. There is no tricuspid valve stenosis. PULMONIC VALVE The pulmonary valve is normal in structure and function. Doppler and Color Flow revealed no pulmonic valvular regurgitation. GREAT VESSELS The aortic root is normal in size. The ascending aorta is normal in size. The IVC is normal in size a nd collapses >50% with inspiration. PERICARDIAL EFFUSION There is no evidence of significant pericardial effusion. Critical Notification Critical Value: No <Conclusion> The left ventricle is normal size. The left ventricular systolic function is normal and the ejection fraction is within normal range. Estimated ejection fraction is 55-60%. The interatrial septum is intact with no evidence for an atrial septal defect or patent foramen ovale as noted on 2-D or Doppler imaging. Technically difficult but normal bubble study. Doppler and Color Flow revealed no significant aortic regurgitation. There is no significant aortic valvular stenosis. Doppler and Color Flow revealed trace mitral valve regurgitation. Doppler and Color Flow revealed no tricuspid valve regurgitation noted. The pulmonary valve is normal in structure and function. Signed by : Dilip Montero MD Electronically Approved : 04/09/2021 18:18:31
[2021-04-09 19:00] VITALS: BP 115/77
[2021-04-09 23:00] VITALS: BP 90/63
[2021-04-10 03:00] VITALS: BP 108/73
[2021-04-10] MEDS: PIPERACILLIN/TAZOBACTAM 3.375 GM in IV NORMAL SALINE 50ML 50 ML IV SCH ×4 (05:30→23:20)
[2021-04-10 07:00] VITALS: BP 179/95
[2021-04-10] MEDS: IV NORMAL SALINE 1000ML BAG 1,000 ML IV SCH ×2 (08:44→20:59)
[2021-04-10] MEDS: ASCORBIC ACID 500 MG TABLET PO SCH (08:45)
[2021-04-10] MEDS: MULTIVITAMIN with MINERAL TABLET. PO SCH (08:45)
[2021-04-10] MEDS: BACLOFEN 10 MG TABLET. PO SCH ×4 (08:45→20:58)
[2021-04-10] MEDS: LACTOBACILLUS RHAMNOSUS GG 1 CAPSULE. PO SCH ×2 (08:45→20:58)
[2021-04-10] MEDS: POLYETHYLENE GLYCOL 3350 17 GM PACKET. PO SCH ×2 (08:46→20:57)
--- NOTE | 2021-04-10 09:15 | PDOC ---
Infectious Disease Note Subjective: Subjective Feels better. No F/C/S/N/V/D/SOA Vital Signs: Vital Signs Vital Signs Date Time Temp Pulse Resp B/P (MAP) Pulse Ox O2 Delivery O2 Flow Rate FiO2 04/10/21 08:45 68 179/95 04/10/21 08:00 Room Air 04/10/21 07:00 97.4 18 96 97.4 Physical Exam: PHYSICAL EXAM GENERAL: The patient is in bed, alert, awake comfortable HEENT: Normal conjunctivae. Oral oropharynx pink and moist. No lesions seen. NECK: Supple. LUNGS: Clear to auscultation. No accessory muscle use. HEART: Normal S1, S2 regular. ABDOMEN: Distended, soft, nontender with bowel sounds present. GENITOURINARY: Indwelling Jo catheter in place since 04/05. clear urine EXTREMITIES: Disarticulation right hip. 3+ edema in left lower extremity. He has a left heel wound and lt ankle wound with a dressing in place, No cyanosis. SKIN: Warm to touch. No signs of rash. BACK : He has an approximately 3 cm sacrococcygeal wound. No bone probed, NEUROLOGIC: Alert, answering questions appropriately, somewhat of a poor historian, quadriplegia with some gross movement of right upper extremity, left leg contracted.Lt fingers chronic contractures present, Medications: Inpatient Meds: Medications reviewed. Labs: Lab Laboratory Tests Test 04/09/21 14:25 White Blood Count 6.5 x10^3/uL (4.0-11.0) Red Blood Count 3.97 x10^6/uL (4.30-5.70) Hemoglobin 10.3 g/dL (13.0-17.5) Hematocrit 31.9 % (39.0-53.0) Mean Corpuscular Volume 80 fL (79-100) Mean Corpuscular Hemoglobin 26 pg (25-35) Mean Corpuscular Hemoglobin Concent 32 g/dL (31-37) Red Cell Distribution Width 20.0 % (11.5-14.5) Platelet Count 188 x10^3/uL (140-400) Neutrophils (%) (Auto) 74 % (31-73) Lymphocytes (%) (Auto) 13 % (24-48) Monocytes (%) (Auto) 7 % (0-9) Eosinophils (%) (Auto) 6 % (0-3) Basophils (%) (Auto) 0 % (0-3) Neutrophils # (Auto) 4.8 x10^3/uL (1.8-7.7) Lymphocytes # (Auto) 0.8 x10^3/uL (1.0-4.8) Monocytes # (Auto) 0.4 x10^3/uL (0.0-1.1) Eosinophils # (Auto) 0.4 x10^3/uL (0.0-0.7) Basophils # (Auto) 0.0 x10^3/uL (0.0-0.2) Sodium Level 144 mmol/L (136-145) Potassium Level 4.1 mmol/L (3.5-5.1) Chloride Level 110 mmol/L (98-107) Carbon Dioxide Level 26 mmol/L (21-32) Anion Gap 8 (6-14) Blood Urea Nitrogen 10 mg/dL (8-26) Creatinine 0.4 mg/dL (0.7-1.3) Estimated GFR (Cockcroft-Gault) 265.5 BUN/Creatinine Ratio 25 (6-20) Glucose Level 100 mg/dL (70-99) Calcium Level 7.7 mg/dL (8.5-10.1) Total Bilirubin 0.2 mg/dL (0.2-1.0) Aspartate Amino Transf (AST/SGOT) 95 U/L (15-37) Alanine Aminotransferase (ALT/SGPT) 80 U/L (16-63) Alkaline Phosphatase 155 U/L (46-116) C-Reactive Protein, Quantitative 26.6 mg/L (0-3.3) Total Protein 6.1 g/dL (6.4-8.2) Albumin 2.2 g/dL (3.4-5.0) Albumin/Globulin Ratio 0.6 (1.0-1.7) Micro CT A/P IMPRESSION: 1. Most of the inferior sacrum and coccyx are absent secondary to a large erosion. This is consistent with osteomyelitis, but likely a chronic finding. 2. 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 This may reflect a neuropathic joint or changes of prior/chronic septic arthritis. 3. Fecal impaction. 4. Severe right hydronephrosis and advanced right renal atrophy. UC polymicrobial contaminated specimen BC 10/29 staph epidermidis likely contaminant Objective: Assessment: 1. Chronic sacrococcygeal pressure wound with destructive changes on CT imaging, may be chronic ,sacral wound but does not track to bone at this time, 2. Gram-positive cocci bacteremia, 1/4 bottles on 04/05. staph epidermidis,could be a contaminant repeat BC are negative 3. Pyuria - 3 or more organisms seen - contamination. 4. Fecal impaction BM 04/06. 5. Quadriplegia with neurogenic bowel and bladder. UC contamination, 6. CT abdomen shows Severe right hydronephrosis and advanced right renal atrophy . 7. 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 Plan: Plan of Care Cont dapto and Zosyn 04/06 for now No bone exposure f/u cultures Monitor labs/temp Local wound care and off loading No surgical intervention planned Bowel regimen per primary Patient may need consult for to center with urology due to severe right hydronephrosis Will need flap in the future per Gen surgery D/W nursing CARRIE TREVIÑO MD Apr 10, 2021 09:15
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
[2021-04-10 11:00] VITALS: BP 110/75
--- NOTE | 2021-04-10 11:19 | PDOC ---
KEELEY RIDLEY CROWNING INSPECTOR 04/10/21 1119: CARDIO Progress Notes Date and Time Date of Service 04/10/21 Time of Evaluation 1120 Subjective Subjective: No Chest Pain, No shortness of breath, No Palpitations Vitals Vitals Vital Signs Date Time Temp Pulse Resp B/P (MAP) Pulse Ox O2 Delivery O2 Flow Rate FiO2 04/10/21 08:45 68 179/95 04/10/21 08:00 Room Air 04/10/21 07:00 97.4 18 96 97.4 Weight Weight [ ] Input and Output Intake and Output Intake and Output 04/10/21 06:53 Intake Total 1490 ml Output Total 5150 ml Balance -3660 ml Intake Oral 440 ml IV Total 1050 ml Output Urine Total 5150 ml Laboratory Labs Laboratory Tests Test 04/09/21 14:25 White Blood Count 6.5 x10^3/uL (4.0-11.0) Red Blood Count 3.97 x10^6/uL (4.30-5.70) Hemoglobin 10.3 g/dL (13.0-17.5) Hematocrit 31.9 % (39.0-53.0) Mean Corpuscular Volume 80 fL (79-100) Mean Corpuscular Hemoglobin 26 pg (25-35) Mean Corpuscular Hemoglobin Concent 32 g/dL (31-37) Red Cell Distribution Width 20.0 % (11.5-14.5) Platelet Count 188 x10^3/uL (140-400) Neutrophils (%) (Auto) 74 % (31-73) Lymphocytes (%) (Auto) 13 % (24-48) Monocytes (%) (Auto) 7 % (0-9) Eosinophils (%) (Auto) 6 % (0-3) Basophils (%) (Auto) 0 % (0-3) Neutrophils # (Auto) 4.8 x10^3/uL (1.8-7.7) Lymphocytes # (Auto) 0.8 x10^3/uL (1.0-4.8) Monocytes # (Auto) 0.4 x10^3/uL (0.0-1.1) Eosinophils # (Auto) 0.4 x10^3/uL (0.0-0.7) Basophils # (Auto) 0.0 x10^3/uL (0.0-0.2) Sodium Level 144 mmol/L (136-145) Potassium Level 4.1 mmol/L (3.5-5.1) Chloride Level 110 mmol/L (98-107) Carbon Dioxide Level 26 mmol/L (21-32) Anion Gap 8 (6-14) Blood Urea Nitrogen 10 mg/dL (8-26) Creatinine 0.4 mg/dL (0.7-1.3) Estimated GFR (Cockcroft-Gault) 265.5 BUN/Creatinine Ratio 25 (6-20) Glucose Level 100 mg/dL (70-99) Calcium Level 7.7 mg/dL (8.5-10.1) Total Bilirubin 0.2 mg/dL (0.2-1.0) Aspartate Amino Transf (AST/SGOT) 95 U/L (15-37) Alanine Aminotransferase (ALT/SGPT) 80 U/L (16-63) Alkaline Phosphatase 155 U/L (46-116) C-Reactive Protein, Quantitative 26.6 mg/L (0-3.3) Total Protein 6.1 g/dL (6.4-8.2) Albumin 2.2 g/dL (3.4-5.0) Albumin/Globulin Ratio 0.6 (1.0-1.7) Microbiology Micro Microbiology 04/05/21 Blood Culture - Preliminary, Resulted NO GROWTH AFTER 4 DAYS 04/05/21 Urine Culture - Final, Complete Physical Exam HEENT: Neck Supple W Full Motion Chest: Symmetric LUNGS: Clear to Auscultation Heart: RRR (heart tones regular. Not on tele) Abdomen: Soft N/T Extremities: Other (right AKA ) Neurology: alert, oriented, follow commands Assessment Assessment 1. 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 2. Quadriplegia with neurogenic bowel and bladder. suprapubic catheter 3. UTI 4. Bacteremia; GPC 1/4 bottles on 04/05. Echo with preserved LV systolic function. No evidence of vegetation 5. Hypertension; labile Recommendations Monitor BP trends Wound care Ongoing antibiotics as per ID Follow cultures Consider PAM if high clinical suspicion for endocarditis Supportive care Justicifation of Admission Dx: Justifications for Admission: Justification of Admission Dx: N/A HARRISON WILLIAMSON MD 04/10/21 1622: CARDIO Progress Notes Assessment Assessment Patient seen and evaluated. I agree with our nurse practitioners assessment and plan. 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 Followed by ID. Quadriplegia with neurogenic bowel and bladder. suprapubic catheter UTI. Bacteremia; GPC 1/4 bottles on 04/05. Echo with preserved LV systolic function. No evidence of vegetation. Hypertension; labile. KEELEY RIDLEY APRN Apr 10, 2021 11:19 HARRISON WILLIAMSON MD Apr 10, 2021 16:22
--- NOTE | 2021-04-10 13:42 | NUR ---
SS following up with discharge planning. SS reviewed pt chart and discussed with pt RN. Pt is currently on room air. Pt on IV Daptomycin and IV Zosyn. Wound care following. No PT/OT needs. SS will continue to follow for discharge planning.
[2021-04-10 15:00] VITALS: BP 108/67
[2021-04-10] MEDS: DAPTOmycin (GENERIC) IVPB 320 MG in IV NORMAL SALINE 50ML 50 ML IV SCH (15:55)
[2021-04-10] MEDS: BISACODYL 10 MG SUPP.RECT. PR PRN (16:13)
[2021-04-10 19:00] VITALS: BP 154/96
[2021-04-10 23:00] VITALS: BP 138/83
[2021-04-11 03:00] VITALS: BP 114/78
[2021-04-11] MEDS: PIPERACILLIN/TAZOBACTAM 3.375 GM in IV NORMAL SALINE 50ML 50 ML IV SCH ×4 (05:26→23:57)
[2021-04-11 07:00] VITALS: BP 121/76
[2021-04-11] MEDS: POLYETHYLENE GLYCOL 3350 17 GM PACKET. PO SCH ×2 (08:58→21:00)
[2021-04-11] MEDS: ASCORBIC ACID 500 MG TABLET PO SCH (08:58)
[2021-04-11] MEDS: SENNOSIDES/DOCUSATE 8.6/50MG TABLET. PO SCH (08:59)
[2021-04-11] MEDS: MULTIVITAMIN with MINERAL TABLET. PO SCH (08:59)
[2021-04-11] MEDS: LACTOBACILLUS RHAMNOSUS GG 1 CAPSULE. PO SCH ×2 (08:59→21:25)
[2021-04-11] MEDS: BACLOFEN 10 MG TABLET. PO SCH ×4 (09:01→21:25)
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
--- NOTE | 2021-04-11 10:07 | PDOC ---
Infectious Disease Note Subjective: Subjective Patient without complaints Vital Signs: Vital Signs Vital Signs Date Time Temp Pulse Resp B/P (MAP) Pulse Ox O2 Delivery O2 Flow Rate FiO2 04/11/21 09:02 71 114/78 04/11/21 07:00 98.1 18 96 Room Air 98.1 Physical Exam: PHYSICAL EXAM GENERAL: The patient is in bed, alert, awake comfortable HEENT: Normal conjunctivae. Oral oropharynx pink and moist. No lesions seen. NECK: Supple. LUNGS: Clear to auscultation. No accessory muscle use. HEART: Normal S1, S2 regular. ABDOMEN: Distended, soft, nontender with bowel sounds present. GENITOURINARY: Indwelling Jo catheter in place since 04/05. clear urine EXTREMITIES: Disarticulation right hip. 2- 3+ edema in left lower extremity. He has a left heel wound and lt ankle wound with a dressing in place, No cyanosis. SKIN: Warm to touch. No signs of rash. BACK : sacral wound soiled with fecal matter,approximately 3 cm sacrococcygeal wound. No bone probed, Clean base, some undermining, no surrounding redness or maceration NEUROLOGIC: Alert, answering questions appropriately, somewhat of a poor historian, quadriplegia with some gross movement of right upper extremity, left leg contracted.Lt fingers chronic contractures present, Medications: Inpatient Meds: Medications reviewed. Labs: Micro CT A/P IMPRESSION: 1. Most of the inferior sacrum and coccyx are absent secondary to a large erosion. This is consistent with osteomyelitis, but likely a chronic finding. 2. 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 This may reflect a neuropathic joint or changes of prior/chronic septic arthritis. 3. Fecal impaction. 4. Severe right hydronephrosis and advanced right renal atrophy. UC polymicrobial contaminated specimen BC 10/29 staph epidermidis likely contaminant Objective: Assessment: 1. Chronic sacrococcygeal pressure wound with destructive changes on CT imaging, may be chronic ,sacral wound but does not track to bone at this time, 2. Gram-positive cocci bacteremia, 1/4 bottles on 04/05. staph epidermidis,could be a contaminant repeat BC are negative 3. Pyuria - 3 or more organisms seen - contamination. 4. Fecal impaction BM 04/06. 5. Quadriplegia with neurogenic bowel and bladder. UC contamination, 6. CT abdomen shows Severe right hydronephrosis and advanced right renal atrophy . 7. 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 Plan: Plan of Care Cont dapto and Zosyn 04/06 for now while pt is here Repeat follow-up blood cultures negative so far Local wound care and off loading No surgical intervention planned per general surgery Bowel regimen per primary Patient may need consult for to center with urology due to severe right hydronephrosis May need flap in the future per Gen surgery When patient is ready for discharge transition to p.o. Augmentin and doxycycline for 2 weeks Patient remains of risk of worsening sacral wound due to close proximity with anal canal DC right EJ if possible D/W nursing CARRIE TREVIÑO MD Apr 11, 2021 10:07
[2021-04-11 11:00] VITALS: BP 94/53
[2021-04-11] MEDS: IV NORMAL SALINE 1000ML BAG 1,000 ML IV SCH (12:23)
[2021-04-11 15:08] VITALS: BP 97/65
[2021-04-11] MEDS: DAPTOmycin (GENERIC) IVPB 320 MG in IV NORMAL SALINE 50ML 50 ML IV SCH (16:48)
[2021-04-11 19:00] VITALS: BP 105/62
[2021-04-11 23:00] VITALS: BP 104/70
[2021-04-12 03:00] VITALS: BP 109/75
[2021-04-12] MEDS: IV NORMAL SALINE 1000ML BAG 1,000 ML IV SCH ×2 (03:31→14:10)
[2021-04-12] MEDS: PIPERACILLIN/TAZOBACTAM 3.375 GM in IV NORMAL SALINE 50ML 50 ML IV SCH (06:03)
[2021-04-12 07:00] VITALS: BP 101/73
[2021-04-12] MEDS: MULTIVITAMIN with MINERAL TABLET. PO SCH (08:13)
[2021-04-12] MEDS: LACTOBACILLUS RHAMNOSUS GG 1 CAPSULE. PO SCH (08:13)
[2021-04-12] MEDS: ASCORBIC ACID 500 MG TABLET PO SCH (08:13)
[2021-04-12 08:14] LABS: BASO % 0 % (0-3); EOS # 0.5 x10^3/uL (0.0-0.7); EOS % 10 % (0-3); HEMATOCRIT 31.4 % (39.0-53.0); HEMOGLOBIN 10.3 g/dL (13.0-17.5); LYMPH # 1.5 x10^3/uL (1.0-4.8); LYMPH % 28 % (24-48); MEAN CORPUSCULAR HEMOGLOBIN 26 pg (25-35); MEAN CORPUSCULAR HGB CONC 33 g/dL (31-37); MEAN CORPUSCULAR VOLUME 80 fL (79-100); MONO # 0.4 x10^3/uL (0.0-1.1); MONO % 8 % (0-9); NEUT # 2.9 x10^3/uL (1.8-7.7); NEUT % 54 % (31-73); PLATELET COUNT 197 x10^3/uL (140-400); RED BLOOD COUNT 3.91 x10^6/uL (4.30-5.70); WHITE BLOOD COUNT 5.4 x10^3/uL (4.0-11.0)
[2021-04-12] MEDS: BACLOFEN 10 MG TABLET. PO SCH ×2 (08:14→14:23)
[2021-04-12] MEDS: POLYETHYLENE GLYCOL 3350 17 GM PACKET. PO SCH (08:15)
[2021-04-12 08:19] LABS: ALBUMIN 2.3 g/dL (3.4-5.0); ALBUMIN/GLOBULIN RATIO 0.6 (1.0-1.7); CREATININE 0.6 mg/dL (0.7-1.3); GFR 166.3; POTASSIUM 4.4 mmol/L (3.5-5.1); TOTAL BILIRUBIN 0.2 mg/dL (0.2-1.0); TOTAL PROTEIN 6.4 g/dL (6.4-8.2)
--- NOTE | 2021-04-12 08:43 | PDOC ---
Infectious Disease Note Subjective: Subjective Patient without complaints Vital Signs: Vital Signs Vital Signs Date Time Temp Pulse Resp B/P (MAP) Pulse Ox O2 Delivery O2 Flow Rate FiO2 04/12/21 08:15 74 109/75 04/12/21 03:00 97.7 18 95 Room Air 97.7 Physical Exam: PHYSICAL EXAM GENERAL: The patient is in bed, alert, awake comfortable HEENT: Normal conjunctivae. Oral oropharynx pink and moist. No lesions seen. NECK: Supple. LUNGS: Clear to auscultation. No accessory muscle use. HEART: Normal S1, S2 regular. ABDOMEN: Distended, soft, nontender with bowel sounds present. GENITOURINARY: Indwelling Williamson catheter in place since 04/05. clear urine EXTREMITIES: Disarticulation right hip. 2- 3+ edema in left lower extremity. He has a left heel wound and lt ankle wound with a dressing in place, No cyanosis. SKIN: Warm to touch. No signs of rash. BACK : sacral wound soiled with fecal matter,approximately 3 cm sacrococcygeal wound. No bone probed, Clean base, some undermining, no surrounding redness or maceration NEUROLOGIC: Alert, answering questions appropriately, somewhat of a poor historian, quadriplegia with some gross movement of right upper extremity, left leg contracted.Lt fingers chronic contractures present, Medications: Inpatient Meds: Medications reviewed. Labs: Lab Laboratory Tests Test 04/12/21 06:50 White Blood Count 5.4 x10^3/uL (4.0-11.0) Red Blood Count 3.91 x10^6/uL (4.30-5.70) Hemoglobin 10.3 g/dL (13.0-17.5) Hematocrit 31.4 % (39.0-53.0) Mean Corpuscular Volume 80 fL (79-100) Mean Corpuscular Hemoglobin 26 pg (25-35) Mean Corpuscular Hemoglobin Concent 33 g/dL (31-37) Red Cell Distribution Width 20.0 % (11.5-14.5) Platelet Count 197 x10^3/uL (140-400) Neutrophils (%) (Auto) 54 % (31-73) Lymphocytes (%) (Auto) 28 % (24-48) Monocytes (%) (Auto) 8 % (0-9) Eosinophils (%) (Auto) 10 % (0-3) Basophils (%) (Auto) 0 % (0-3) Neutrophils # (Auto) 2.9 x10^3/uL (1.8-7.7) Lymphocytes # (Auto) 1.5 x10^3/uL (1.0-4.8) Monocytes # (Auto) 0.4 x10^3/uL (0.0-1.1) Eosinophils # (Auto) 0.5 x10^3/uL (0.0-0.7) Basophils # (Auto) 0.0 x10^3/uL (0.0-0.2) Sodium Level 142 mmol/L (136-145) Potassium Level 4.4 mmol/L (3.5-5.1) Chloride Level 108 mmol/L (98-107) Carbon Dioxide Level 27 mmol/L (21-32) Anion Gap 7 (6-14) Blood Urea Nitrogen 17 mg/dL (8-26) Creatinine 0.6 mg/dL (0.7-1.3) Estimated GFR (Cockcroft-Gault) 166.3 BUN/Creatinine Ratio 28 (6-20) Glucose Level 62 mg/dL (70-99) Calcium Level 8.0 mg/dL (8.5-10.1) Total Bilirubin 0.2 mg/dL (0.2-1.0) Aspartate Amino Transf (AST/SGOT) 23 U/L (15-37) Alanine Aminotransferase (ALT/SGPT) 38 U/L (16-63) Alkaline Phosphatase 103 U/L (46-116) Total Protein 6.4 g/dL (6.4-8.2) Albumin 2.3 g/dL (3.4-5.0) Albumin/Globulin Ratio 0.6 (1.0-1.7) Micro CT A/P IMPRESSION: 1. Most of the inferior sacrum and coccyx are absent secondary to a large er osion. This is consistent with osteomyelitis, but likely a chronic finding. 2. 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 This may reflect a neuropathic joint or changes of prior/chronic septic arthritis. 3. Fecal impaction. 4. Severe right hydronephrosis and advanced right renal atrophy. UC polymicrobial contaminated specimen BC 10/29 staph epidermidis likely contaminant Objective: Assessment: 1. Chronic sacrococcygeal pressure wound with destructive changes on CT imaging, may be chronic ,sacral wound but does not track to bone at this time, 2. Gram-positive cocci bacteremia, 1/6 bottles on 04/05. staph epidermidis,likely contaminant 3. Pyuria - 3 or more organisms seen - contamination. 4. Fecal impaction BM 04/06. 5. Quadriplegia with neurogenic bowel and bladder. UC contamination, 6. CT abdomen shows Severe right hydronephrosis and advanced right renal atrophy . Good Urine output in williamson bag 7. 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 Plan: Plan of Care Okay to discharge patient from ID standpoint DC dapto and Zosyn on discharge Augmentin and doxycycline, repeat in chart for discharge Local wound care and off loading No surgical intervention planned per general surgery Bowel regimen per primary Patient may need consult for to center with urology due to severe right hydronephrosis May need flap in the future per Gen surgery When patient is ready for discharge transition to p.o. 

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
[2021-04-12 11:00] VITALS: BP 94/61
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
[2021-04-12] MEDS ORDERED: AMOX1TAB11 PO (12:16)
[2021-04-12] MEDS ORDERED: LACT1CAP19 PO (12:16)
[2021-04-12] MEDS ORDERED: BISA10SU4 PR (12:16)
[2021-04-12] MEDS ORDERED: ASCO500T4 PO (12:16)
[2021-04-12] MEDS ORDERED: DOXY100T PO (12:16)
[2021-04-12] MEDS ORDERED: AMLO-186 PO (12:16)
--- NOTE | 2021-04-12 12:18 | SNU/HH DC ---
DISCHARGE WITH HOME HEALTH DISCHARGE INFORMATION: Discharge Date: Apr 12, 2021 Final Diagnosis: Problems Medical Problems: (1) Catheter-associated urinary tract infection Status: Acute Condition on Discharge: Stable CODE STATUS: Code Status: Full HOME HEALTH: Face to Face: I certify this patient is under my care and that I, or a nurse practitioner or physician's operations administrative assistant working with me, had a face to face encounter that meets the physician face to face encounter requirements with this patient on []. Medical Complications: Other (paraplegia) Fpc For: Admin/Educate Injections, Assess Cardiopulm Status, Assess & Educate Safety, Assess/Skilled Observatio, Bowel/Bladder Training, Medication Management, plumbing contractor For Eval/Treatment: Yes Physical Therapy For: Evalulation/Treatment Occupational Therapy For: Evaluation/Treatment Speech Language Pathology For: Evaluation/Treatment Home Health Aide For: Self-care SUPERINTENDENT DISTRIBUTION For: Community Resources Pt Meets Homebound Status: Unable to negotiate home POST DISCHARGE ORDERS: Activity Instructions for Disc: Activity as tolerated Weight Bearing Status after Di: Non weight bearing Bathing Instructions: Shower-keep dressing dry DIET AFTER DISCHARGE: Low Sodium 2 gm Wound/Incision Care: Change dressing CHECKS AFTER DISCHARGE: Checks after discharge: Check blood press - daily FOLLOW-UP: PCP to follow Home Health: pcp in one week CERTIFICATION STATEMENT: Certification Statement: Certification Statement: Based on the above finding, I certify that this patient is confined to the home and needs intermittent group home care, physical therapy and/or speech therapy, or continues to need occupational therapy.~ This patient is under my care, and I have initiated the establishment of the plan of care.~ This patient will be followed by myself or a community physician who will periodically review the plan of care. Home Meds Active Scripts Ascorbic Acid (VITAMIN C) 500 Mg Tablet, 500 MG PO DAILY for supplement for 30 Days, #30 TAB Prov:ALEC GARCIA MD 04/12/21 Lactobacillus Rhamnosus Gg (CULTURELLE) 1 Each Cap.sprink, 1 CAP PO BID for supplement for 30 Days, #60 CAP Prov:ALEC GARCIA MD 04/12/21 Bisacodyl (BISACODYL) 10 Mg Supp.rect, 10 MG SD PRN DAILY PRN for CONSTIPATION- 1ST CHOICE for 30 Days, #14 SUPP.RECT Prov:ALEC GARCIA MD 04/12/21 Amlodipine Besylate (AMLODIPINE BESYLATE) 5 Mg Tablet, 5 MG PO DAILY for blood pressure for 30 Days, #30 TAB Prov:ALEC GARCIA MD 04/12/21 Doxycycline Hyclate (DOXYCYCLINE HYCLATE) 100 Mg Tablet, 100 MG PO BID for in fection for 14 Days, #28 TAB Prov:ALEC GARCIA MD 04/12/21 Amoxicillin/Potassium Clav (AMOX TR-K CLV 875-125 MG TAB) 1 Each Tablet, 1 TAB PO BID for infection for 14 Days, #28 TAB Prov:ALEC GARCIA MD 04/12/21 Reported Medications Multivitamin (MULTIVITAMINS) 1 Each Tablet, 1 TAB PO DAILY for SUPPLEMENT, #90 TAB 3 Refills 05/26/19 Polyethylene Glycol 3350 (MIRALAX) 17 Gm Powd.pack, 1 PACKET PO PRN DAILY PRN for CONSTIPATION, #30 PACKET 3 Refills 05/26/19 Sennosides/Docusate Sodium (Stool Softener Tablet) 1 Each Tablet, 1 EACH PO QODAY for CONSTIPATION, TAB 05/26/19 Baclofen (BACLOFEN) 20 Mg Tablet, 20 MG PO QID for MUSCLE RELAXER, #30 TAB 0 R efills 07/05/15 Discontinued Scripts Levofloxacin (LEVOFLOXACIN) 750 Mg Tablet, 750 MG PO DAILY for UTI WITH HEMATURIA, #14 TAB 0 Refills Prov:MONSERRAT ETIENNE APRN 10/22/20 ALEC GARCIA MD Apr 12, 2021 12:18
[2021-04-12 15:00] VITALS: BP 98/72
--- NOTE | 2021-04-12 15:28 | NUR ---
SW following. Discussed with RN, discharge orders for home with home health. SW met with pt, pt agreeable to home health, reported he had [facility] in the past. SW spoke with [facility] - they are no longer in network with pt's insurance. Antonieta Larios RN met with pt, pt agreeable. Stretcher transportation arranged with [facility] for [address]. RN notified. SW will continue to follow.
--- NOTE | 2021-04-12 18:09 | NUR ---
Patient discharge home with [facility] today via stretcher, accompanied by ambulance personal. Patient is stable, IV removed, prescription was left here so brother Arturo was contacted to pick it later today or tomorrow. Discharge paperwork was given to patient and patient verbalized understanding of follow up and discharge instruction. [facility] was contacted regarding patient bed set up at home and they will call back.
[2021-04-12] MEDS ORDERED: AMOXICILLIN/K CLAV 875/125MG TABLET. PO SCH (21:00)
[2021-04-12] MEDS ORDERED: DOXYCYCLINE HYCLATE 100 MG TABLET PO SCH (21:00)
== END 2021-04-12 18:19 | disposition still patient (30) | DRG 698 ==
LOC: ER 11:40 → 6 SOUTH 15:10 → 4 NORTH 04-08 18:50
PROVIDERS: ADMIT Family Medicine; ATTEND Family Medicine
DX: T83.592A Infection and inflammatory reaction due to indwelling ureteral stent, initial encounter (principal); G82.50 Quadriplegia, unspecified; A41.89 Other specified sepsis; L03.90 Cellulitis, unspecified; J98.11 Atelectasis; K59.2 Neurogenic bowel, not elsewhere classified; M46.28 Osteomyelitis of vertebra, sacral and sacrococcygeal region; M00.9 Pyogenic arthritis, unspecified; N13.30 Unspecified hydronephrosis; E87.0 Hyperosmolality and hypernatremia; B96.89 Other specified bacterial agents as the cause of diseases classified elsewhere; F32.9 Major depressive disorder, single episode, unspecified; F41.9 Anxiety disorder, unspecified; I10 Essential (primary) hypertension; K56.41 Fecal impaction; L89.159 Pressure ulcer of sacral region, unspecified stage; M19.072 Primary osteoarthritis, left ankle and foot; M24.7 Protrusio acetabuli; M85.80 Other specified disorders of bone density and structure, unspecified site; N28.1 Cyst of kidney, acquired; N31.9 Neuromuscular dysfunction of bladder, unspecified; Y84.6 Urinary catheterization as the cause of abnormal reaction of the patient, or of later complication, without mention of misadventure at the time of the procedure; Z82.49 Family history of ischemic heart disease and other diseases of the circulatory system; Z82.5 Family history of asthma and other chronic lower respiratory diseases; Z86.14 Personal history of Methicillin resistant Staphylococcus aureus infection; Z87.440 Personal history of urinary (tract) infections; Z87.891 Personal history of nicotine dependence; Z89.611 Acquired absence of right leg above knee; Z98.42 Cataract extraction status, left eye; G83.9 Paralytic syndrome, unspecified; K21.9 Gastro-esophageal reflux disease without esophagitis; R54 Age-related physical debility
CPT/HCPCS: 36415; 71045; 73630; 74176; 80048; 80053; 81001; 82550; 83605; 85025; 85651; 86140; 87015; 87040; 87077; 87086; 87205; 93306; J0878; J2543; J7030; J7040; 99285-25; G0378